=== PATIENT | female | born 1945 | race Caucasian/White ===

== ENCOUNTER 2020-12-27 11:01 | Outpatient (REF) | payer MEDICARE, OTHER, SELFPAY ==
--- NOTE | ~2020-12-27 | MM_ITS ---
EXAMINATION: MM SCREENING DIGITAL BREAST TOMOSYNTHESIS, BILATERAL CLINICAL INFORMATION: Screening. Asymptomatic. The lifetime risk of breast cancer based on the Tyrer-Cuzick Model is 2%. COMPARISON: Mammography: 2 12/22/2019, 01/13/2019, 12/07/2017 TECHNIQUE: Digital breast tomosynthesis is performed in both the craniocaudal and mediolateral oblique views along with computer-aided detection (CAD). Synthesized 2D images are generated from the tomosynthesis. FINDINGS: There are scattered areas of fibroglandular density (ACR BI-RADS breast composition Category b). There are no significant masses, abnormal calcifications, or other abnormalities. There is a stable smooth nodule mid outer left breast. There are scattered benign predominantly vascular calcifications again seen in both breasts. No significant changes. MM/MM tomosynthesis screening BI IMPRESSION: No mammographic evidence of malignancy. ASSESSMENT: BI-RADS 2: Benign RECOMMENDATION: Routine annual mammography screening. This patient's information was entered into a reminder system with a target due date for their next mammogram.
== END 2020-12-27 11:02 | disposition home or self-care (01) ==
LOC: HO.MAMMO 11:01
PROVIDERS: PCP Internal Medicine; Visit Provider Internal Medicine
DX: Z12.31 Encounter for screening mammogram for malignant neoplasm of breast (principal)
CPT/HCPCS: 77063; 77067

== ENCOUNTER 2021-02-20 06:49 | Outpatient (REF) | payer MEDICARE, OTHER, SELFPAY ==
[2021-02-20 12:20] LABS: Alanine Aminotransferase 15 U/L (0-31); Anion Gap 12 (12-20); Aspartate Amino Transferase 20 U/L (5-31); Blood Urea Nitrogen 15 mg/dL (9-16); Calcium 8.8 mg/dL (8.4-10.2); Carbon Dioxide 29 mmol/L (22-29); Chloride 105 mmol/L (96-108); Cholesterol 203 mg/dL; Estimated Glomerular Filt Rate > 60; Glucose Fasting 96 mg/dL (60-99); HDL Cholesterol 78 mg/dL; LDL Cholesterol Calculated 113 mg/dl; Potassium 3.8 mmol/L (3.3-5.1); Sodium 142 mmol/L (135-145); Triglycerides 63 mg/dL
[2021-02-20 12:22] LABS: Vitamin D 25-OH Total 38.5 ng/mL (>30)
== END 2021-02-20 06:50 | disposition home or self-care (01) ==
LOC: HO.HMGCLDS 06:49
PROVIDERS: PCP Internal Medicine; Visit Provider Internal Medicine
DX: I10 Essential (primary) hypertension (principal); E78.5 Hyperlipidemia, unspecified; M85.80 Other specified disorders of bone density and structure, unspecified site
CPT/HCPCS: 36415; 80048; 80061; 82306; 84450; 84460

== ENCOUNTER 2022-01-15 13:55 | Outpatient (REF) | payer MEDICARE, OTHER, SELFPAY ==
--- NOTE | ~2022-01-15 | MM_ITS ---
EXAMINATION: BONE DENSITOMETRY CLINICAL INDICATION: Other specified disorders of bone density and structure, unspecified site. COMPARISON: Previous BD dated 12/07/2017 and baseline BD dated 10/05/2005. TECHNIQUE: Using a [employer] DXA System (software version: 13.1) manufactured by [employer], dual-energy x-ray absorptiometry was performed of the lumbar spine and left hip. The images are of good technical quality. Summary results are attached. FINDINGS: AP SPINE L1-L4: Current: BMD 0.951 g/cm2, Z-score -0.1, T-score -1.9, osteopenia, 2.7% decrease from previous, 4.8% decrease from baseline (<5% change is not significant). Prior: BMD 0.977 g/cm2. Baseline: BMD 0.999 g/cm2. LEFT FEMUR, NECK: Current: BMD 0.739 g/cm2, Z-score -0.1, T-score -2.1, osteopenia. Prior: BMD 0.722 g/cm2. Baseline: BMD 0.740 g/cm2. LEFT FEMUR, TOTAL: Current: BMD 0.828 g/cm2, Z-score 0.5, T-score -1.4, osteopenia, 2.7% decrease from previous, 2.9% increase from baseline (<5% change is not significant). Prior: BMD 0.851 g/cm2. Baseline: BMD 0.805 g/cm2. IDENTIFIED RISK FACTORS: Menopause. HISTORY OF FRACTURE: None listed. MEDICATIONS: Vitamin D. MM/XR DEXA axial skeleton IMPRESSION: 1. DIAGNOSIS: Osteopenia based on the lowest T-score value of -2.1 in the femoral neck applying World Health Organization criteria. 2. 10-YEAR FRACTURE RISK PREDICTION, FRAX: Major osteoporotic fracture (clinical spine, forearm, hip or shoulder) 15.2%. Hip fracture 4.7%. 3. Treatment Recommendations: NOF guidelines recommend consideration for treatment in postmenopausal women and men age 50 and older presenting with the following: -A hip or vertebral (clinical or morphometric) fracture. -T-score less than or equal to -2.5 at the femoral neck or spine after appropriate evaluation to exclude secondary causes. -Low bone mass at the hip or spine and a 10-year fracture probability by FRAX of greater than or equal to 3% for hip fracture or greater than or equal to 20% for major osteoporotic fracture based on the [place] adapted WHO algorithm. 4. Other Recommendations: All treatment decisions require clinical judgment and consideration of individual patient factors, including patient preferences, comorbidities, previous drug use, risk factors not captured in the FRAX model (e.g. frailty, falls, vitamin D deficiency, increased bone turnover, interval significant decline in bone density) and possible under or overestimation of fracture risk by FRAX. Additional medical evaluation for secondary cause of low bone mineral density may be appropriate. FUTURE SCAN RECOMMENDATION: People with diagnosed cases of osteoporosis or at high risk for fracture should have regular bone mineral density tests. For patients eligible for Medicare, routine testing is allowed once every 2 years. The testing frequency can be increased to one year for patients who have rapidly progressing disease, those who are receiving or discontinuing medical therapy to restore bone mass, or have additional risk factors.
--- NOTE | ~2022-01-15 | MM_ITS ---
EXAMINATION: MM SCREENING DIGITAL BREAST TOMOSYNTHESIS, BILATERAL CLINICAL INFORMATION: Screening. Asymptomatic. The lifetime risk of breast cancer based on the Tyrer-Cuzick Model is 2.0%. COMPARISON: Mammography: December 27, 2020 and studies dating back to November 12, 2015 TECHNIQUE: Digital breast tomosynthesis is performed in both the craniocaudal and mediolateral oblique views along with computer-aided detection (CAD). Synthesized 2D images are generated from the tomosynthesis. FINDINGS: There are scattered areas of fibroglandular density (ACR BI-RADS breast composition Category b). There are no significant masses, abnormal calcifications, or other abnormalities. MM/MM tomosynthesis screening BI IMPRESSION: There are no significant changes from prior study. ASSESSMENT: BI-RADS 1: Negative RECOMMENDATION: Routine annual mammography screening. This patient's information was entered into a reminder system with a target due date for their next mammogram.
== END 2022-01-15 13:56 | disposition home or self-care (01) ==
LOC: HO.MAMMO 13:55
PROVIDERS: PCP Internal Medicine; Visit Provider Internal Medicine
DX: Z13.820 Encounter for screening for osteoporosis (principal); M85.80 Other specified disorders of bone density and structure, unspecified site; Z78.0 Asymptomatic menopausal state; Z12.31 Encounter for screening mammogram for malignant neoplasm of breast
CPT/HCPCS: 77063; 77067; 77080

== ENCOUNTER 2022-03-09 06:55 | Outpatient (REF) | payer MEDICARE, OTHER, SELFPAY ==
[2022-03-09 12:10] LABS: Alanine Aminotransferase 14 U/L (0-31); Anion Gap 10 (12-20); Aspartate Amino Transferase 21 U/L (5-31); Blood Urea Nitrogen 15 mg/dL (9-16); Calcium 9.2 mg/dL (8.4-10.2); Carbon Dioxide 30 mmol/L (22-29); Chloride 106 mmol/L (96-108); Cholesterol 206 mg/dL; Estimated Glomerular Filt Rate > 60; Glucose Fasting 101 mg/dL (60-99); HDL Cholesterol 74 mg/dL; LDL Cholesterol Calculated 121 mg/dl; Potassium 4.3 mmol/L (3.3-5.1); Sodium 142 mmol/L (135-145); Triglycerides 59 mg/dL; Vitamin D 25-OH Total 34.6 ng/mL (>30)
== END 2022-03-09 06:56 | disposition home or self-care (01) ==
LOC: HO.HMGCLDS 06:55
PROVIDERS: Visit Provider Internal Medicine
DX: E78.5 Hyperlipidemia, unspecified (principal); I10 Essential (primary) hypertension; M85.80 Other specified disorders of bone density and structure, unspecified site; N95.9 Unspecified menopausal and perimenopausal disorder; Z78.0 Asymptomatic menopausal state
CPT/HCPCS: 36415; 80048; 80061; 82306; 84450; 84460

== ENCOUNTER 2023-01-21 08:08 | Outpatient (REF) | payer MEDICARE, OTHER, SELFPAY ==
--- NOTE | ~2023-01-21 | MM_ITS ---
EXAMINATION: MM SCREENING DIGITAL BREAST TOMOSYNTHESIS, BILATERAL CLINICAL INFORMATION: Screening. Asymptomatic. The lifetime risk of breast cancer based on the Tyrer-Cuzick Model is 1.7%. COMPARISON: Mammography: January 15, 2022 and studies dating back to every 2017 TECHNIQUE: Digital breast tomosynthesis is performed in both the craniocaudal and mediolateral oblique views along with computer-aided detection (CAD). Synthesized 2D images are generated from the tomosynthesis. FINDINGS: There are scattered areas of fibroglandular density (ACR BI-RADS breast composition Category b). There are no new significant masses, abnormal calcifications, or other abnormalities. MM/MM tomosynthesis screening BI IMPRESSION: No significant changes from prior exam. ASSESSMENT: BI-RADS 1: Negative RECOMMENDATION: Routine annual mammography screening. This patient's information was entered into a reminder system with a target due date for their next mammogram.
== END 2023-01-21 08:09 | disposition home or self-care (01) ==
LOC: HO.MAMMO 08:08
PROVIDERS: PCP Internal Medicine; Visit Provider Internal Medicine
DX: Z12.31 Encounter for screening mammogram for malignant neoplasm of breast (principal)
CPT/HCPCS: 77063; 77067

== ENCOUNTER 2023-03-04 06:56 | Outpatient (REF) | payer MEDICARE, OTHER, SELFPAY ==
[2023-03-04 12:16] LABS: Alanine Aminotransferase 14 U/L (0-31); Anion Gap 11 (12-20); Aspartate Amino Transferase 22 U/L (5-31); Blood Urea Nitrogen 16 mg/dL (9-16); Calcium 9.2 mg/dL (8.4-10.2); Carbon Dioxide 31 mmol/L (22-29); Chloride 106 mmol/L (96-108); Cholesterol 211 mg/dL; Estimated Glomerular Filt Rate > 60; Glucose Fasting 94 mg/dL (60-99); HDL Cholesterol 74 mg/dL; LDL Cholesterol Calculated 125 mg/dl; Potassium 4.2 mmol/L (3.3-5.1); Sodium 144 mmol/L (135-145); Triglycerides 64 mg/dL
== END 2023-03-04 06:57 | disposition home or self-care (01) ==
LOC: HO.HMGCLDS 06:56
PROVIDERS: PCP Internal Medicine; Visit Provider Internal Medicine
DX: E78.5 Hyperlipidemia, unspecified (principal); I10 Essential (primary) hypertension; M85.80 Other specified disorders of bone density and structure, unspecified site; Z78.0 Asymptomatic menopausal state
CPT/HCPCS: 36415; 80048; 80061; 82306; 84450; 84460

== ENCOUNTER 2023-03-11 07:52 | Outpatient (AMB) | payer MEDICARE, OTHER, SELFPAY ==
--- NOTE | 2023-03-11 07:58 | A.OFFPC_ITS ---
Vital Signs 03/11/23 08:08 Height 5 ft 5 in Weight 146 lb BMI 24.3 BP 152/90 H Blood Pressure Location Lt brachial Position Sitting Pulse 63 Pulse Source Pulse Oximeter Pulse Oximetry (%) 96 Oxygen Delivery Method Room Air Intake Visit Reasons: PE/secondary covers Intake Note: Pt is here today for her PE Allergies Sulfa (Sulfonamide Antibiotics) Allergy (Unknown, Verified 06/01/23 13:02) hives atorvastatin Adverse Reaction (Unknown, Verified 06/01/23 13:02) muscle pain rosuvastatin Adverse Reaction (Unknown, Verified 06/01/23 13:02) muscle pain Medication List - Last Reconciled 03/11/23 by Tiny Potter MD hydrochlorothiazide 12.5 mg PO DAILY meclizine 0 mg PO pravastatin 20 mg PO DAILY Tobacco use date assessed: 03/11/23 Fall risk assessment: No Falls in past year Last assessed Fall Risk: 03/11/23 HPI PE/secondary covers HPI Details 77-year-old lady here today for physical exam. She is up-to-date with her screening mammogram, done December 2022 and is also up-to-date with her screening colonoscopy done 09/02/2015 which was essentially unremarkable except for presence of sigmoid diverticulosis and internal hemorrhoids. As per Dr. Bejarano, there is no further need to for repeat colonoscopies. She had a bone density scan done in 2021 which showed presence of osteopenia in her lumbar spine spine, no significant change from previous bone density scan. She has had her COVID vaccine, but has not yet had her latest booster, up-to-date with her pneumonia vaccine and Tdap, no shingles vaccine seen on record. Has hypertension, dyslipidemia, compliant with taking her medications, bl ood pressure today is mildly elevated. Complains of approximately 6 weeks acute pain in her left lower back radiating down left leg up to up to calf, not accompanied by any incontinence, no weakness. Pain is worse when she wakes up in the morning and starts walking, ease up with walking he has been taking Aleve and Excedrin which affords only temporary relief. Has been doing stretches in bed, which has not been helping. No history of trauma or any strenuous exertion. [facility] Medical History (Updated 07/14/23 @ 00:43 by Tiny Potter MD) Intermittent vertigo Sleeping difficulty Lumbago with sciatica, left side Dyslipidemia Essential hypertension Osteopenia after menopause Surgical History No pertinent past surgical history Social History Housing: House Alcohol intake: never Patient Tobacco Use Status: Never used Tobacco e-Cigarette/Vaping Use: Never Used Current occupational status: retired Cognitive needs: No Hearing needs: No Vision needs: Yes Questionnaire PHQ-9 Over the last 2 weeks, how often have you been bothered by any of the following problems? 02000 - PHQ-9 Billing: Patient declined-do not bill Source: Developed by Drs. Eleuterio Spivey, Marsha Darling, Antonio Goodman and colleagues, with an educational bebeto from [employer]. Thrive Questionnaire Date Thrive assessed: 03/11/23 What is your living situation today?: I choose not to answer this question Within the past 12 months, did the food you bought not last and you didn't have the money to get more?: I choose not to answer this question Within the past 12 months, did you worry whether your food would run out before you got money to buy more?: I choose not to answer this question Do you have trouble paying for medicines?: I choose not to answer this question Do you have trouble getting transportation to medical appointments?: I choose not to answer this question Do you have trouble paying your heating and electricity bill?: I choose not to answer this question Do you have trouble taking care of your child, family member or friend?: I choose not to answer this question Do you have trouble with day-to-day activities such as bathing, preparing meals, shopping, managing finances, etc.?: I choose not to answer this question Are you currently unemployed and looking for a job?: I choose not to answer this question Are you interested in more education?: I choose not to answer this question Currently or been in a relationship where the following occur: I choose not to answer this question AUDIT C Alcohol Use Questionnaire (AUDIT-C) 1. How often do you have a drink containing alcohol?: Monthly or less 2. How many drinks containing alcohol do you have on a typical day when you are drinking?: 1 or 2 3. How often do you have six or more drinks on one occasion?: Never Total Score: 1 BIGG-7 AMB Questionnaire BIGG-7 Date BIGG - 7 assessed: 03/11/23 Source: Developed by Drs. Eleuterio Spivey, Marsha Darling, Antonio Goodman and colleagues, with an educational bebeto from [employer]. BIGG-7 Assessment Billing BIGG-7 Assessment Tool: pt declined-do not bill Review of Systems Const Reports as per HPI, Denies fever(s), Denies headache(s), Denies snoring, Denies stops breathing during sleep and Denies weakness ENT Denies dizziness, Denies headache(s), Denies nasal congestion and Denies post nasal drip Card Reports no additional complaints Resp Reports no additional complaints and Denies snoring GI Denies abdominal pain, Denies bloating, Denies change in bowel habits, Denies dyspepsia and Denies heartburn Reports no additional complaints Musc Reports as per HPI Skin/Breast Denies breast pain, Denies breast mass and Denies rash Neuro Denies dizziness, Denies headache(s) and Denies weakness Psych Reports no additional complaints Endo Reports no additional complaints Lazarus/Lymph Reports no additional complaints Aller/Immun Reports no additional complaints Physical exam (Primary Care) Vital Signs: Last Vital Signs Pulse 63 03/11/23 08:08 BP 152/90 H 03/11/23 08:08 Pulse Ox 96 03/11/23 08:08 Oxygen Delivery Method Room Air 03/11/23 08:08 BMI result Body Mass Index 24.3 Tobacco/Smoking Status: Tobacco use Status Tobacco use date assessed 03/11/23 03/11/23 08:08 Patient Tobacco Use Status Never used Tobacco 03/11/23 07:59 e-Cigarette/Vaping Use Never Used 03/11/23 07:59 Thrive Assessment: Date of Thrive Assessment Date Thrive assessed 03/11/23 03/11/23 08:14 Currently or been in a relationship where the following occur: I choose not to answer this question Const General: cooperative, comfortable and no acute distress Orientation/consciousness: patient oriented x3 HENMT Ears: hearing grossly normal bilaterally, external ears normal, TM's normal bilaterally and EAC's normal General nose exam: Normal external nose present, Normal nasal mucous membranes and turbinates present and No nasal discharge present Mouth: Normal oral and palatal mucosa present, oropharynx normal and moist mucous membranes Throat: Yes posterior oropharynx normal Eyes General: appearance normal, both eyes and all related structures Conjunctivae: conjunctivae normal Pupils: Equal, round and reactive pupils present EOM: EOMs intact bilaterally Neck Neck: Yes full ROM, Yes no lymphadenopathy and Yes supple Chest Chest palpation & inspection: normal inspection of the chest Breast/axilla palpation: normal palpation of the breasts Resp Effort & Inspection: normal respiratory effort and able to speak in complete sentences Auscultation: clear to auscultation bilaterally Cardio Rate: regular rate Rhythm: regular rhythm Heart sounds: S1 normal heart sound present and S2 normal heart sound present GI Inspection: Yes normal to inspection Palpation (GI): Soft to palpation, nontender and no masses Auscultation: normal bowel sounds Back/Spine/Pelvis Cervical Spine: cervical ROM normal Thoracic/Lumbar Spine: thoracic and lumbar spine normal to inspection Skin General skin exam: no rashes or lesions noted Neuro General: patient oriented x3, gait normal, tone normal, moves all extremities, Normal light touch and pain sensation and no focal motor deficits Cranial nerves: Yes Equal, round and reactive pupils present Cognition (Neuro): normal cognition Gait exam (Neuro): Normal gait present Motor exam (neuro): 5/5 motor strength present throughout Extrem General: Yes full ROM, Yes no joint enlargement, Yes no pedal edema, Yes no calf tenderness and Yes normal gait Psych Appearance: grossly normal Mental Status: mental status grossly normal Speech and movement: Normal speech and movement present Affect: normal affect Results Reviewed Results Reviewed: ENTERED: 03/04/23 AMBER MEJIA: ORDERED: Met Prof Fast, AST, ALT, Lipid Panel, Vitamin D 25-OH Test Result Flag Reference Site Sodium 144 135-145 mmol/L Potassium 4.2 3.3-5.1 mmol/L CL 106 96-108 mmol/L CO2 31 H 22-29 mmol/L Gap 11 L 12-20 BUN 16 9-16 mg/dL Creat 0.79 0.5-1.4 mg/dL EGFR > 60 NOTE: For -[place] individuals, multiply the result by 1.210. Chronic Kidney Disease: Estimated GFR < 60 mL/min/1.73m2 Severe Kidney Disease: Estimated GFR < 15 mL/min/1.73m2 FBS 94 60-99 mg/dL CA 9.2 8.4-10.2 mg/dL AST (GOT) 22 5-31 U/L ALT (GPT) 14 0-31 U/L Triglyceride 64 mg/dL Desirable Triglyceride: less than 150 mg/dL Borderline High Triglyceride 150-199 mg/dL High Triglyceride: 200-499 mg/dL Very High Triglyceride: greater than or equal to 5OO mg/dL Chol 211 mg/dL Desirable Cholesterol: less than 200 mg/dL Borderline High Cholesterol: 200-239 mg/dL High Cholesterol: greater than 239 mg/dL LDL Calculated 125 mg/dl Desirable LDL: less than 100 mg/dL Near Optimal/Above Optimal LDL: 110-129 mg/dL Borderline High LDL: 130-159 mg/dL High LDL: 160-189 mg/dL Very High LDL: greater than or equal to 190 mg/dL HDL 74 mg/dL Desirable HDL: greater than 40 mg/dL Note: This HDL assay may give artificially low results in patients with liver disease. Vit D 25-OH Tot 56.0 >30 ng/mL Health Based Reference Values* < 20 ng/mL Deficient 20-30 ng/mL Insufficient > 30 ng/mL Sufficient Assessment and Plan Assessment & Plan (1) Annual visit for general adult medical examination with abnormal findings: Code(s): Z00.01 - Encounter for general adult medical examination with abnormal findings Plan: Reviewed recent fasting lab results with patient. Continue with regular dental visit every 6 months and regular eye exams, at least every 2 years. Take adequate calcium in diet and vitamin-D 3 at 2000 IU per cap once a day, in addition to weight-bearing exercises to help maintain good muscle tone and weight control. She is up-to-date with her screening mammogram, done December 2022 and is also up-to-date with her screening colonoscopy done 09/02/2015 which was essentially unremarkable except for presence of sigmoid diverticulosis and internal hemorrhoids. As per Dr. Bejarano, there is no further need to for repeat colonoscopies. She had a bone density scan done in 2021 which showed presence of osteopenia in her lumbar spine spine, no significant change from previous bone density scan. She has had her COVID vaccine, but has not yet had her latest booster, up-to-date with her pneumonia vaccine and Tdap, no shingles vaccine seen on record. (2) Lumbago with sciatica, left side: Code(s): M54.42 - Lumbago with sciatica, left side Qualifiers: Back pain laterality: unspecified Chronicity: acute Qualified Code(s): M54.42 - Lumbago with sciatica, left side Plan: Advised to take Tylenol 650 mg 1 tablet every 8 hours as needed for pain, try applying heat to affected area in lower back 15 minutes or, may try [id number] Salonpas patch with lidocaine applied to affected area twice a day as needed. Referred for physical therapy (3) Dyslipidemia: Code(s): E78.5 - Hyperlipidemia, unspecified Plan: Reviewed recent fasting lipid profile with patient with levels within normal limits . Continue with pravastatin 20 mg at bedtime , in addition to adherence to low-cholesterol diet and regular exercise, at least 30 minutes 3 to 4 times a week. Advised patient to make healthy food choices, eat more fruits, vegetables, whole grains, wild caught fish and low-fat dairy. Limit amount of meat and fried or fatty food products, as well as processed foods and fast foods. (4) Essential hypertension: Code(s): I10 - Essential (primary) hypertension Plan: Systolic blood pressure is mildly elevated on today's visit, will continue on lisinopril 10 mg daily and hydrochlorothiazide 25 mg in a.m., Blood pressure goal is less than 130/80. Reinforced importance of following a low sodium diet, getting regular exercise, and lowering stress levels. (5) Osteopenia after menopause: Code(s): M85.80 - Other specified disorders of bone density and structure, unspecified site; Z78.0 - Asymptomatic menopausal state Plan: Continue with regular weight-bearing exercise, continue taking calcium from dietary sources and vitamin-D 3 at least 2000 units daily. Orders: Orders PT Evaluation and Treatment 03/11/23 M54.42 - Lumbago with sciatica, left side Coding Level of Care Code Est Pt Prev Care >65y(52444) Diagnoses Annual visit for general adult medical examination with abnormal findings Z00.01 Acute low back pain with left-sided sciatica, unspecified back pain laterality M54.42 Back pain laterality: unspecified Chronicity: acute Dyslipidemia E78.5 Essential hypertension I10 Osteopenia after menopause M85.80; Z78.0
[2023-03-11 08:08] VITALS: BP 152/90; PULSE 63; O2SAT 96; BMI 24.3
== END 2023-03-11 08:51 | disposition home or self-care (01) ==
LOC: HO.HMGC 07:52
PROVIDERS: PCP Internal Medicine; Visit Provider Internal Medicine
DX: Z00.01 Encounter for general adult medical examination with abnormal findings (principal); M54.42 Lumbago with sciatica, left side; E78.5 Hyperlipidemia, unspecified; I10 Essential (primary) hypertension; M85.80 Other specified disorders of bone density and structure, unspecified site; Z78.0 Asymptomatic menopausal state
CPT/HCPCS: 99397

== ENCOUNTER 2023-06-01 12:58 | Outpatient (AMB) | payer MEDICARE, OTHER, SELFPAY ==
--- NOTE | 2023-06-01 12:56 | A.OFFPC_ITS ---
Intake Visit Reasons: trouble sleeping Andriod [phone] ok 2pm Allergies Sulfa (Sulfonamide Antibiotics) Allergy (Unknown, Verified 06/01/23 13:02) hives atorvastatin Adverse Reaction (Unknown, Verified 06/01/23 13:02) muscle pain rosuvastatin Adverse Reaction (Unknown, Verified 06/01/23 13:02) muscle pain Medication List - Last Reconciled 06/01/23 by Tiny Potter MD cholecalciferol (vitamin D3) 50 mcg PO DAILY hydrochlorothiazide 25 mg PO DAILY lisinopril 10 mg PO DAILY meclizine 25 mg PO DAILY PRN ov-tgh-OB-vit L-cprwcc-meqladq 200 mcg-15 mcg- 5 mg-1 mg (PreserVision AREDS 2 Plus Multivit) 1 cap PO BID pravastatin 20 mg PO DAILY Tobacco use date assessed: 06/01/23 Fall risk assessment: No Falls in past year Last assessed Fall Risk: 06/01/23 Dental Screening Dental Screen Date: 06/01/23 Did you have a dental visit in the last 12 months?: Yes Did you have a dental problem in the last 6 months where you did not have access to dental care?: No Was dental information given to patient?: Patient has dentist HPI trouble sleeping Andriod [phone] ok 2pm HPI Details 77 year old lady c/o difficulty initiating sleep and wakes up in the middle of the night and unable to go back to sleep . Has been happening now for the past several months . Has not been having any increased stressors, no illnesses or any other complaints at present time. She would sometimes take an Aleve whenever she wakes up and unable to go to sleep in it helps relaxer. The time she has tried taking melatonin 3 mg per tablet which helps her sleep but she wakes up feeling groggy the next morning. [facility] Medical History (Updated 06/01/23 @ 13:16 by Tiny Potter MD) Dyslipidemia Essential hypertension Lumbago with sciatica, left side Osteopenia after menopause Sleeping difficulty Surgical History No pertinent past surgical history Social History Housing: House Alcohol intake: never Patient Tobacco Use Status: Never used Tobacco e-Cigarette/Vaping Use: Never Used Current occupational status: retired Cognitive needs: No Hearing needs: No Vision needs: Yes Questionnaire PHQ-9 Over the last 2 weeks, how often have you been bothered by any of the following problems? 1. Little interest or pleasure in doing things: not at all 2. Feeling down, depressed, or hopeless: not at all 3. Trouble falling or staying asleep, or sleeping too much: not at all 4. Feeling tired or having little energy: not at all 5. Poor appetite or overeating: not at all 6. Feeling bad about yourself - or that you are a failure or have let yourself or your family down: not at all 7. Trouble concentrating on things, such as reading the newspaper or watching television: not at all 8. Moving or speaking so slowly that other people could have noticed. Or the opposite - being so fidgety or restless that you have been moving around a lot more than usual: not at all 9. Thoughts that you would be better off or of hurting yourself in some way: not at all Total score: 0 Depression Screening Interpretation: Negative 40011 - PHQ-9 Billing: Yes Source: Developed by Drs. Eleuterio Spivey, Marsha Darling, Antonio Goodman and colleagues, with an educational bebeto from [employer]. Thrive Questionnaire Date Thrive assessed: 03/11/23 AUDIT C Alcohol Use Questionnaire (AUDIT-C) 1. How often do you have a drink containing alcohol?: Never Total Score: 0 BIGG-7 AMB Questionnaire BIGG-7 Date BIGG - 7 assessed: 06/01/23 Feeling nervous, anxious, or on edge: 0 = Not at all Not being able to stop or control worryin = Not at all Worrying too much about different things: 0 = Not at all Trouble relaxin = Not at all Being so restless that it is hard to sit still: 0 = Not at all Becoming easily annoyed or irritable: 0 = Not at all Feeling afraid as if something awful might happen: 0 = Not at all Total BIGG-7 score (0-4 normal; 5-9 mild; 10-14 moderate; 15-21 severe): 0 Source: Developed by Charles Cedenoet B.W. Phong, Antonio Goodman and colleagues, with an educational bebeto from [employer]. BIGG-7 Assessment Billing BIGG-7 Assessment Tool: BIGG-7 Assessment 08409 Review of Systems Const Reports as per HPI, Denies fatigue, Denies fever(s), Denies headache(s), Denies lethargy, Denies snoring, Denies stops breathing during sleep and Denies weakness ENT Denies vertigo, Denies dizziness, Denies headache(s), Denies nasal congestion, Denies nasal obstruction, Denies post nasal drip and Denies sore throat Card Reports no additional complaints Resp Reports no additional complaints and Denies snoring GI Denies abdominal pain, Denies bloating, Denies change in bowel habits, Denies dyspepsia and Denies heartburn Musc Reports no additional complaints Neuro Denies vertigo, Denies dizziness, Denies headache(s) and Denies weakness Endo Denies fatigue Aller/Immun Reports no additional complaints Physical exam (Primary Care) Tobacco/Smoking Status: Tobacco use Status Tobacco use date assessed 06/01/23 06/01/23 12:58 Patient Tobacco Use Status Never used Tobacco 06/01/23 12:58 e-Cigarette/Vaping Use Never Used 06/01/23 12:58 Depression Screening Interpretation: Negative Thrive Assessment: Date of Thrive Assessment Date Thrive assessed 03/11/23 06/01/23 12:58 Telehealth Telehealth Location of provider rendering services: practice address Location of patient: address on file Patient Identification confirmed using: Name, : Yes Telehealth method: video Patient verbally consented to treatment: Yes Patient verbally consented to billing insurance company: Yes Patient informed of any privacy concerns related to visit: Yes Minutes spent on Phone/Video with Pt.: 15 Assessment and Plan Assessment & Plan (1) Sleeping difficulty: Code(s): G47.9 - Sleep disorder, unspecified Plan: Advised to do this at a regular bedtime, avoid taking long naps during the afternoon, keep bedroom temperature a comfortable level, on the cooler side. May try melatonin but take 1.5 mg or half a tablet of the 3 mg that she already has at home at bedtime at least 30 minutes before sleep, patient advised to call if not helping Coding Level of Care Code Tele Est Pt Level 3 (85935) Diagnoses Sleeping difficulty G47.9 Additional Codes BIGG-7 Assessment Billing - BIGG-7 Assessment Tool: BIGG-7 Assessment 14634 ([id number])
== END 2023-06-01 16:51 | disposition home or self-care (01) ==
LOC: HO.HMGC 12:59
PROVIDERS: PCP Internal Medicine; Visit Provider Internal Medicine
DX: G47.9 Sleep disorder, unspecified (principal)
CPT/HCPCS: 99213

== ENCOUNTER 2023-08-18 11:21 | Outpatient (AMB) | payer MEDICARE, OTHER, SELFPAY ==
--- NOTE | 2023-08-18 11:23 | AM.OFFWIN_ITS ---
Intake Vital Signs 08/18/23 11:29 08/18/23 11:49 Height 5 ft 5 in Weight 144 lb BMI 24.0 BP 172/90 H 128/68 Blood Pressure Location Lt brachial Lt brachial Position Sitting Pulse 76 Pulse Source Pulse Oximeter Temp 98.3 F Temp Source Temporal Artery Scan Pulse Oximetry (%) 97 Oxygen Delivery Method Room Air Intake Visit Reasons: Est/cough/chest tightness Intake Note: pt is here for c/o cough with chest congestion, had flu shot last week and hasnt been feeling good since. coughing up green phlem Patient Tobacco Use Status: Never used Tobacco Allergies Sulfa (Sulfonamide Antibiotics) Allergy (Unknown, Verified 08/18/23 11:52) hives atorvastatin Adverse Reaction (Unknown, Verified 08/18/23 11:52) muscle pain rosuvastatin Adverse Reaction (Unknown, Verified 08/18/23 11:52) muscle pain Medication List - Last Reconciled 08/18/23 by ELDA Martell-HUBER cholecalciferol (vitamin D3) 50 mcg PO DAILY hydrochlorothiazide 25 mg PO QAM lisinopril 10 mg PO DAILY meclizine 25 mg PO DAILY PRN ei-ldp-TN-vit I-liwwit-xwnxuse 200 mcg-15 mcg- 5 mg-1 mg (PreserVision AREDS 2 Plus Multivit) 1 cap PO BID pravastatin 20 mg PO DAILY Do you need a note to return to daycare/school/sports/work: Yes HPI HPI Comments History of Present Illness Details HERE TODAY W CO PRODUCTIVE COUGH FOR THE LAST WEEK. REPORTS FLU VAX 1 WEEK AGO PAIRED W KNOWN SICK CONTACT PRIOR TO ONSET OF SX. ASSOC SX INCLUDE MALAISE, HEADACHE. USED TUSSIN YESTERDAY W/O GREAT BENEFIT. DENIES FEVER, CHILLS, CHEST PAIN, SORE THROAT, TRAVEL. [facility] Medical History (Updated 08/18/23 @ 11:53 by ELDA Martell-HUBER) Intermittent vertigo Sleeping difficulty Lumbago with sciatica, left side Dyslipidemia Essential hypertension Osteopenia after menopause Surgical History No pertinent past surgical history Social History Housing: House Alcohol intake: never Patient Tobacco Use Status: Never used Tobacco e-Cigarette/Vaping Use: Never Used Current occupational status: retired Cognitive needs: No Hearing needs: No Vision needs: Yes Review of Systems Const All systems reviewed & are unremarkable except as noted in HPI and below Physical Exam Vital Signs: Last Vital Signs Temp 98.3 F 08/18/23 11:29 Pulse 76 08/18/23 11:29 BP 172/90 H 08/18/23 11:29 Pulse Ox 97 08/18/23 11:29 Oxygen Delivery Method Room Air 08/18/23 11:29 BMI result Body Mass Index 24.0 Const Other: AWAKE, ALERT, NAD SCLERA/CONJUNCTIVA CLEAR BILAT UNABLE TO SEE TM BILAT D/T CERUMEN IMPACTION BILAT NARES PATENT, NO DRAINAGE, NO SINUS TENDERNESS PHARYNX MILD ERYTHEMA, NO EXUDATE, MMM RRR LS WITH FINE INS/EXP CRACKLES BLL, HACKING CONGESTED COUGH W/O DISTRESS NOTED DURING EXAM SKIN PWD Assessment & Plan Assessment & Plan (1) Flu-like symptoms: Code(s): R68.89 - Other general symptoms and signs Plan: SWABBED TODY FOR COVID/RSV/FLU. SHE WILL BE CALLED W THE RESULTS WHEN AVAILABLE. I AM GOING TO EMPIRICALLY [place] FOR PNA GIVEN EXAM FINDINGS TODAY WITH AB AND COUGH SUPPRESSANT. SHE SHOULD CONT AB DIRECTED UNLESS THE VIRAL SWAB COMES BACK +. IF THIS IS THE CASE, SHE CAN STOP THE AB AND CONT COUGH SUPPRESSANT AND USE SUPPORTIVE CARE FOR HER SX. (2) Cough productive of purulent sputum: Code(s): R05.8 - Other specified cough (3) Impacted cerumen of both ears: Code(s): H61.23 - Impacted cerumen, bilateral Plan: INCIDENTAL FINDING. SHE HAS SELF TX AT HOME IN THE PAST. ADVISED TO USE OTC/HOME TX ONCE SHE IS FEELING BETTER. Orders: Orders SARS-CoV2/FLU/RSV Today R05.8 - Other specified cough, R68.89 - Other general symptoms and signs XR chest 2V Today R05.8 - Other specified cough, R68.89 - Other general symptoms and signs Medications: New amoxicillin-pot clavulanate 500-125 mg 1 tab PO BID 7 days 14 tabs 0RF benzonatate 100 mg PO TID 10 days PRN 30 caps 1RF cough Coding Level of Care Code Est Pt Level 3 (10897) Diagnoses Flu-like symptoms R68.89 Cough productive of purulent sputum R05.8 Impacted cerumen of both ears H61.23
[2023-08-18 11:29] VITALS: BP 172/90; PULSE 76; TEMP 36.8; O2SAT 97; BMI 24.0
[2023-08-18 11:49] VITALS: BP 128/68
== END 2023-08-18 12:23 | disposition home or self-care (01) ==
PROVIDERS: PCP Internal Medicine; Visit Provider Nurse Practitioner Family
DX: R68.89 Other general symptoms and signs (principal); R05.8 Other specified cough; H61.23 Impacted cerumen, bilateral
CPT/HCPCS: 99213

== ENCOUNTER 2023-08-18 11:50 | Outpatient (REF) | payer MEDICARE, OTHER, SELFPAY ==
--- NOTE | ~2023-08-18 | XR_ITS ---
EXAMINATION: XR CHEST CLINICAL INFORMATION: Cough COMPARISON: PA chest only of 06/26/2015 TECHNIQUE: 2 views of the chest were obtained. FINDINGS: The lungs are hyperinflated. There is no gross pneumothorax. Heart size is normal. S-shaped thoracolumbar scoliosis with multilevel degenerative changes. No pleural effusion. Mild linear and hazy opacities at the left lung base, new since 2014. XR/XR chest 2V IMPRESSION: Mild linear and hazy opacities at the left lung base, increased since 06/26/2015 exam. Differential considerations include atelectasis/scar versus pneumonia. Correlation with clinical exam recommended to determine further management. Recommend follow-up imaging in 4-6 weeks to confirm resolution and exclude underlying pathology. Stat report provided as requested to the referring clinician at the time exam presented for interpretation on 08/18/2023 at 1:00 PM.
[2023-08-18 17:11] LABS: Influenza A PCR NEGATIVE (Negative); Influenza B PCR NEGATIVE (Negative); Resp Syncy Virus RNA Qual PCR NEGATIVE (Negative); SARS COV2 PCR INHOUSE NEGATIVE (Negative)
== END 2023-08-18 11:51 | disposition home or self-care (01) ==
LOC: HO.HMGCX 11:50
PROVIDERS: Visit Provider Nurse Practitioner Family
DX: Z11.52 Encounter for screening for COVID-19 (principal); R05.8 Other specified cough; R68.89 Other general symptoms and signs
CPT/HCPCS: 0241U; 71046

== ENCOUNTER 2023-08-20 10:14 | Outpatient (AMB) | payer MEDICARE, OTHER, SELFPAY ==
[2023-08-20 10:17] VITALS: BP 160/90; PULSE 78; TEMP 36.6; O2SAT 96; BMI 24.0
--- NOTE | 2023-08-20 10:17 | MHC.OFFWIV ---
Intake Vital Signs 08/20/23 10:17 Height 5 ft 5 in Weight 144 lb BMI 24.0 BP 160/90 H Blood Pressure Location Lt brachial Position Sitting Pulse 78 Pulse Source Pulse Oximeter Temp 97.8 F Temp Source Temporal Artery Scan Pulse Oximetry (%) 96 Oxygen Delivery Method Room Air Intake Visit Reasons: EP Cough Intake Note: pt is here for c/o cough was just seen in walk in 2 days ago, negative for covid but xray showed lower lobe pneumonia Patient Tobacco Use Status: Never used Tobacco Allergies Sulfa (Sulfonamide Antibiotics) Allergy (Unknown, Verified 08/20/23 10:19) hives atorvastatin Adverse Reaction (Unknown, Verified 08/20/23 10:19) muscle pain rosuvastatin Adverse Reaction (Unknown, Verified 08/20/23 10:19) muscle pain Do you need a note to return to daycare/school/sports/work: Yes HPI HPI Comments History of Present Illness Details This is a 77-year-old female presenting for re-evaluation of a left lower lobe pneumonia. Patient was initially seen in the walk-in clinic on August 18, diagnosed with a pneumonia and discharged home with Augmentin that she has been taking twice daily. The patient returns stating that her cough is productive and she feels that it has worsened. Patient denies any overt shortness of breath and denies any chest pain. Overall, the patient states she feels better than she did on her initial evaluation, but is concerned about her cough. [facility] Medical History Intermittent vertigo Sleeping difficulty Lumbago with sciatica, left side Dyslipidemia Essential hypertension Osteopenia after menopause Surgical History No pertinent past surgical history Social History Housing: House Alcohol intake: never Patient Tobacco Use Status: Never used Tobacco e-Cigarette/Vaping Use: Never Used Current occupational status: retired Cognitive needs: No Hearing needs: No Vision needs: Yes Review of Systems Const Denies chills, Reports fatigue and Denies fever(s) ENT Denies sinus pain, Denies sinus pressure and Denies sore throat Card Denies dyspnea Resp Reports chest congestion, Reports cough, Denies hemoptysis, Reports excessive phlegm production, Denies dyspnea and Denies wheezing Skin/Breast Reports system reviewed and no additional complaints, except as documented Endo Reports fatigue Aller/Immun Denies wheezing Physical Exam Vital Signs: BMI result Body Mass Index 24.0 Afebrile, POX 96% on room air. Const General: cooperative, healthy appearing, comfortable and no acute distress Nutritional Appearance: average body habitus Orientation/consciousness: patient oriented x3 Limitations: no limitations Resp Effort & Inspection: normal respiratory effort, able to speak in complete sentences, no audible wheezes, Actively coughing, respiratory effort not decreased, no respiratory distress, no stridor and not tachypneic Auscultation: clear to auscultation bilaterally, no crackles, no rales, no rhonchi, no wheezes and lung sounds not diminished Cardio Rate: regular rate Rhythm: regular rhythm Neuro General: patient oriented x3 Psych Appearance: grossly normal Mental Status: mental status grossly normal Insight: Good insight present (Psych) Judgement: Good judgement present (Psych) Results Reviewed Results Reviewed: Reviewed documentation and CXR from 08.18.2023 Assessment & Plan Assessment & Plan (1) Pneumonia involving left lung: Code(s): J18.9 - Pneumonia, unspecified organism Plan Patient will continue to take her Augmentin twice daily as previously prescribed and utilize Mucinex OTC daily for the next 7-10 days. Patient is also instructed to increase her clear fluids daily and introduce hot tea with honey. Coding Level of Care Code Est Pt Level 3 (58590) Diagnoses Pneumonia involving left lung J18.9 Time Spent (min) 20
== END 2023-08-20 10:54 | disposition home or self-care (01) ==
PROVIDERS: PCP Internal Medicine; Visit Provider Physician Assistant
DX: J18.9 Pneumonia, unspecified organism (principal)
CPT/HCPCS: 99213

== ENCOUNTER 2023-09-03 09:30 | Outpatient (AMB) | payer MEDICARE, OTHER, SELFPAY ==
--- NOTE | 2023-09-03 09:36 | AM.OFFWIN_ITS ---
Intake Vital Signs 09/03/23 09:39 Height 5 ft 5 in Weight 144 lb BMI 24.0 BP 128/70 Blood Pressure Location Rt brachial Position Sitting Pulse 61 Pulse Source Pulse Oximeter Temp 99.2 F Temp Source Temporal Artery Scan Pulse Oximetry (%) 94 Oxygen Delivery Method Room Air Intake Visit Reasons: EP cough/pos Covid [phone] Intake Note: pt is here for c/o cough 3x weeks, had pneumonia 2 weeks ago Patient Tobacco Use Status: Never used Tobacco Allergies Sulfa (Sulfonamide Antibiotics) Allergy (Unknown, Verified 09/03/23 09:38) hives atorvastatin Adverse Reaction (Unknown, Verified 09/03/23 09:38) muscle pain rosuvastatin Adverse Reaction (Unknown, Verified 09/03/23 09:38) muscle pain Do you need a note to return to daycare/school/sports/work: Yes HPI HPI Comments History of Present Illness Details The patient presents to urgent care for evaluation COVID. She states that she has had a cough for 3 weeks which started soon after getting the flu shot and then developed pneumonia. After treatment of pneumonia she still has had a persistent cough and started to feel unwell again yesterday. Patient took a COVID test this morning which is noted to be positive. Her also tested positive this morning for COVID. They report that they were recently out of town and drove down to [place]. [facility] Medical History (Updated 08/27/23 @ 12:53 by Silvia Montelongo) Intermittent vertigo Sleeping difficulty Lumbago with sciatica, left side Dyslipidemia Essential hypertension Osteopenia after menopause Surgical History (Updated 08/27/23 @ 12:53 by Silvia Montelongo) No pertinent past surgical history Social History (System 08/27/23 @ 12:53 by Silvia Montelongo) Housing: House Alcohol intake: never Patient Tobacco Use Status: Never used Tobacco e-Cigarette/Vaping Use: Never Used Current occupational status: retired Cognitive needs: No Hearing needs: No Vision needs: Yes Review of Systems Card Denies rapid heart rate, Denies dyspnea and Denies dyspnea on exertion Resp Denies dyspnea and Denies dyspnea on exertion GI Denies dyspepsia and Denies heartburn Musc Denies arthralgias and Denies muscle cramps Neuro Denies focal weakness and Denies Other visual disturbances Physical Exam Vital Signs: Last Vital Signs Temp 99.2 F 09/03/23 09:39 Pulse 61 09/03/23 09:39 BP 128/70 09/03/23 09:39 Pulse Ox 94 09/03/23 09:39 Oxygen Delivery Method Room Air 09/03/23 09:39 BMI result Body Mass Index 24.0 Const General: healthy appearing and no acute distress HEENT Mouth: Normal oral and palatal mucosa present Resp Effort & Inspection: normal respiratory effort and able to speak in complete sentences Auscultation: clear to auscultation bilaterally Cardio Rate: regular rate Rhythm: regular rhythm Assessment & Plan Assessment & Plan (1) COVID: Code(s): U07.1 - COVID-19 Plan Patient with COVID will benefit from Paxlovid treatment. Recommend close follow-up with PCP. Coding Level of Care Code Est Pt Level 3 (86644) Diagnoses COVID U07.1
[2023-09-03 09:39] VITALS: BP 128/70; PULSE 61; TEMP 37.3; O2SAT 94; BMI 24.0
== END 2023-09-03 10:06 | disposition home or self-care (01) ==
PROVIDERS: PCP Internal Medicine; Visit Provider Emergency Medicine
DX: U07.1 COVID-19 (principal)
CPT/HCPCS: 99213

== ENCOUNTER 2023-09-10 07:43 | Outpatient (REF) | payer MEDICARE, OTHER, SELFPAY ==
[2023-09-10 12:14] LABS: Alanine Aminotransferase 40 U/L (0-31); Anion Gap 11 (12-20); Aspartate Amino Transferase 38 U/L (5-31); Blood Urea Nitrogen 16 mg/dL (9-16); Calcium 9.4 mg/dL (8.4-10.2); Carbon Dioxide 32 mmol/L (22-29); Chloride 105 mmol/L (96-108); Cholesterol 169 mg/dL (<200); Estimated Glomerular Filt Rate > 60; Glucose Fasting 106 mg/dL (60-99); HDL Cholesterol 53 mg/dL (>40); LDL Cholesterol Calculated 99 mg/dL (<100); Potassium 3.9 mmol/L (3.3-5.1); Sodium 144 mmol/L (135-145); Triglycerides 87 mg/dL (<150); Vitamin D 25-OH Total 93.9 ng/mL (>30)
== END 2023-09-10 07:44 | disposition home or self-care (01) ==
LOC: HO.HMGCLDS 07:43
PROVIDERS: PCP Internal Medicine; Visit Provider Internal Medicine
DX: E78.5 Hyperlipidemia, unspecified (principal); I10 Essential (primary) hypertension; M85.80 Other specified disorders of bone density and structure, unspecified site; Z78.0 Asymptomatic menopausal state
CPT/HCPCS: 36415; 80048; 80061; 82306; 84450; 84460

== ENCOUNTER 2023-09-13 08:26 | Outpatient (AMB) | payer MEDICARE, OTHER, SELFPAY ==
--- NOTE | 2023-09-13 08:37 | A.OFFPC_ITS ---
<Statement entered by Tiny Potter MD - 11/25/25 23:45> This note has been administratively?closed. Vital Signs 09/13/23 08:38 Height 5 ft 5 in Weight 138 lb BMI 23.0 BP 114/72 Blood Pressure Location Rt brachial Position Sitting Pulse 65 Pulse Source Pulse Oximeter Pulse Oximetry (%) 95 Oxygen Delivery Method Room Air Intake Visit Reasons: 6m follow up BP ( needs manager of financial ) Intake Note: pt is here to follow up on her lab results pt says she has not had the covid booster because she is at the end of having covid Allergies Sulfa (Sulfonamide Antibiotics) Allergy (Unknown, Verified 10/08/25 09:31) hives atorvastatin Adverse Reaction (Unknown, Verified 10/08/25 09:31) muscle pain rosuvastatin Adverse Reaction (Unknown, Verified 10/08/25 09:31) muscle pain Medication List - Last Reconciled 09/13/23 by Tiny Potter MD cholecalciferol (vitamin D3) 50 mcg PO DAILY hydrochlorothiazide 25 mg PO QAM lisinopril 10 mg PO DAILY meclizine 25 mg PO DAILY PRN kf-azm-UU-vit L-sydhnu-rshsyhe 200 mcg-15 mcg- 5 mg-1 mg (PreserVision AREDS 2 Plus Multivit) 1 cap PO BID pravastatin 20 mg PO DAILY Tobacco use date assessed: 09/13/23 Fall risk assessment: No Falls in past year Last assessed Fall Risk: 09/13/23 Dental Screening Dental Screen Date: 09/13/23 Did you have a dental visit in the last 12 months?: Yes Did you have a dental problem in the last 6 months where you did not have access to dental care?: No Was dental information given to patient?: Patient has dentist HPI 6m follow up BP ( needs manager of financial ) HPI Details 77-year-old lady with hypertension and h yperlipidemia, here today for her follow-up. She had recent fasting labs done which showed lipids within normal limits, fasting blood sugar in the prediabetic range however. Blood pressure has been stable and controlled on present medications with hydrochlorothiazide and lisinopril. [facility] Medical History History of COVID-19 Sleeping difficulty Lumbago with sciatica, left side Dyslipidemia Essential hypertension Osteopenia after menopause Surgical History No pertinent past surgical history Social History Housing: House Alcohol intake: never Patient Tobacco Use Status: Never used Tobacco e-Cigarette/Vaping Use: Never Used service: No Current occupational status: retired Cognitive needs: No Hearing needs: No Vision needs: Yes Questionnaire PHQ-9 Over the last 2 weeks, how often have you been bothered by any of the following problems? 1. Little interest or pleasure in doing things: not at all 2. Feeling down, depressed, or hopeless: not at all 3. Trouble falling or staying asleep, or sleeping too much: several days 4. Feeling tired or having little energy: several days 5. Poor appetite or overeating: not at all 6. Feeling bad about yourself - or that you are a failure or have let yourself or your family down: not at all 7. Trouble concentrating on things, such as reading the newspaper or watching television: not at all 8. Moving or speaking so slowly that other people could have noticed. Or the opposite - being so fidgety or restless that you have been moving around a lot more than usual: not at all 9. Thoughts that you would be better off or of hurting yourself in some way: not at all Total score: 2 Source: Developed by Drs. Eleuterio Spivey, Marsha Darling, Antonio Goodman and colleagues, with an educational bebeto from [employer]. Thrive Questionnaire Date Thrive assessed: 03/11/23 AUDIT C Alcohol Use Questionnaire (AUDIT-C) 1. How often do you have a drink containing alcohol?: 2-4 times a month 2. How many drinks containing alcohol do you have on a typical day when you are drinking?: 1 or 2 3. How often do you have six or more drinks on one occasion?: Never Total Score: 2 BIGG-7 AMB Questionnaire BIGG-7 Date BIGG - 7 assessed: 09/13/23 Feeling nervous, anxious, or on edge: 0 = Not at all Not being able to stop or control worryin = Not at all Worrying too much about different things: 0 = Not at all Trouble relaxin = Not at all Being so restless that it is hard to sit still: 0 = Not at all Becoming easily annoyed or irritable: 0 = Not at all Feeling afraid as if something awful might happen: 0 = Not at all Total BIGG-7 score (0-4 normal; 5-9 mild; 10-14 moderate; 15-21 severe): 0 Source: Developed by Drs. Eleuterio Spivey, Marsha Darling, Antonio Goodman and colleagues, with an educational bebeto from [employer]. Physical exam (Primary Care) Vital Signs: Last Vital Signs Pulse 65 09/13/23 08:38 BP 114/72 09/13/23 08:38 Pulse Ox 95 09/13/23 08:38 Oxygen Delivery Method Room Air 09/13/23 08:38 BMI result Body Mass Index 23.0 Tobacco/Smoking Status: Tobacco use Status Tobacco use date assessed 09/13/23 09/13/23 08:43 Patient Tobacco Use Status Never used Tobacco 09/13/23 08:37 e-Cigarette/Vaping Use Never Used 09/13/23 08:37 PHQ-9: PHQ-9 Score PHQ-9: Total score 2 09/14/23 02:40 Thrive Assessment: Date of Thrive Assessment Date Thrive assessed 03/11/23 09/13/23 08:37 Results Reviewed Results Reviewed: ENTERED: 09/10/23-0746 AMBER MEJIA: ORDERED: Met Prof Fast, AST, ALT, Lipid Panel, Vitamin D 25-OH Test Result Flag Reference Site Sodium 144 135-145 mmol/L Potassium 3.9 3.3-5.1 mmol/L CL 105 96-108 mmol/L CO2 32 H 22-29 mmol/L Gap 11 L 12-20 BUN 16 9-16 mg/dL Creat 0.79 0.5-1.4 mg/dL EGFR > 60 NOTE: For -[place] individuals, multiply the result by 1.210. Chronic Kidney Disease: Estimated GFR < 60 mL/min/1.73m2 Severe Kidney Disease: Estimated GFR < 15 mL/min/1.73m2 FBS 106 H 60-99 mg/dL A fasting glucose from 100-125 mg/dl is considered impaired (pre-diabetes). CA 9.4 8.4-10.2 mg/dL AST (GOT) 38 H 5-31 U/L ALT (GPT) 40 H 0-31 U/L Triglyceride 87 <150 mg/dL Desirable Triglyceride: less than 150 mg/dL Borderline High Triglyceride 150-199 mg/dL High Triglyceride: 200-499 mg/dL Very High Triglyceride: greater than or equal to 5OO mg/dL Cholesterol 169 <200 mg/dL Desirable Cholesterol: less than 200 mg/dL Borderline High Cholesterol: 200-239 mg/dL High Cholesterol: greater than 239 mg/dL LDL Calculated 99 <100 mg/dL Desirable LDL: less than 100 mg/dL Near Optimal/Above Optimal LDL: 110-129 mg/dL Borderline High LDL: 130-159 mg/dL High LDL: 160-189 mg/dL Very High LDL: greater than or equal to 190 mg/dL HDL 53 >40 mg/dL Desirable HDL: greater than 40 mg/dL Note: This HDL assay may give artificially low results in patients with liver disease. Vit D 25-OH Tot 93.9 >30 ng/mL Health Based Reference Values* < 20 ng/mL Deficient 20-30 ng/mL Insufficient > 30 ng/mL Sufficient Coding Level of Care Code Admin Sign Off/No Billing Diagnoses Cough productive of purulent sputum R05.8 History of COVID-19 Z86.16 History of pneumonia Z87.01 Elevated transaminase level R74.01 Dyslipidemia E78.5 Essential hypertension I10 Osteopenia after menopause M85.80; Z78.0
[2023-09-13 08:38] VITALS: BP 114/72; PULSE 65; O2SAT 95; BMI 23.0
== END 2023-09-13 09:23 | disposition home or self-care (01) ==
PROVIDERS: PCP Internal Medicine; Visit Provider Internal Medicine
DX: R05.8 Other specified cough (principal); Z86.16 Personal history of COVID-19; Z87.01 Personal history of pneumonia (recurrent); R74.01 Elevation of levels of liver transaminase levels; E78.5 Hyperlipidemia, unspecified; I10 Essential (primary) hypertension; M85.80 Other specified disorders of bone density and structure, unspecified site; Z78.0 Asymptomatic menopausal state
CPT/HCPCS: 99499

== ENCOUNTER 2023-09-22 08:49 | Outpatient (REF) | payer MEDICARE, OTHER, SELFPAY ==
--- NOTE | ~2023-09-22 | XR_ITS ---
EXAMINATION: XR CHEST CLINICAL INFORMATION: Personal history of Covid 19 COMPARISON: 08/18/2023. TECHNIQUE: 2 views of the chest were obtained. FINDINGS: No new dominant airspace consolidation. Linear opacity in the left base has become more coarsened and may reflect linear atelectatic change. There is slight blunting in a posterior sulcus and at the left costophrenic angle suggestive of a small effusion. No pneumothorax. Pulmonary vascularity is stable. There is a thoracic dextroscoliosis. Multilevel spondylitic changes observed. XR/XR chest 2V IMPRESSION: No new dominant consolidation. More coarsened linear opacity in the left base likely reflecting linear atelectatic change. Slight blunting in a posterior sulcus in the left costophrenic angle suggestive of a small effusion.
[2023-09-22 11:28] LABS: MANUAL DIFF FLAG NO
[2023-09-22 11:33] LABS: Basophils Percent Auto 0.7 % (0-2); Eosinophils Absolute Auto 0.1 X10*3/uL (0.0-0.4); Eosinophils Percent Auto 1.4 % (0-4); Hematocrit 38.5 % (37.0-47.0); Hemoglobin 12.9 g/dl (12.0-16.0); Imm Gran Abs Auto 0.02 X10*3/uL (0.00-0.03); Imm Gran Pct Auto 0.4 % (0.0-0.4); Lymphocytes Absolute Auto 1.5 X10*3/uL (1.2-4.9); Lymphocytes Percent Auto 26.5 % (20-40); Mean Corpuscular HGB Conc 33.5 g/dl (31.0-35.0); Mean Corpuscular Hemoglobin 32.8 pg (27.0-33.0); Mean Platelet Volume 10.1 fL (9.4-12.3); Monocytes Absolute Auto 0.5 X10*3/uL (0.1-1.2); Monocytes Percent Auto 9.2 % (2-11); Neutrophils Absolute Auto 3.5 x10*3/uL (2.0-8.3); Neutrophils Percent Auto 61.8 % (45-73); Platelet Count 287 X10*3/uL (160-400); Red Blood Count 3.93 X10*6/uL (4.20-5.50); Red Cell Distribution Width 12.5 % (11.0-16.0); White Blood Count 5.7 X10*3/uL (4.8-10.8)
[2023-09-22 11:58] LABS: Alanine Aminotransferase 14 U/L (0-31); Aspartate Amino Transferase 22 U/L (5-31)
== END 2023-09-22 08:50 | disposition home or self-care (01) ==
LOC: HO.HMGCX 08:49
PROVIDERS: PCP Internal Medicine; Visit Provider Internal Medicine
DX: R05.8 Other specified cough (principal); R74.01 Elevation of levels of liver transaminase levels; Z86.16 Personal history of COVID-19; Z87.01 Personal history of pneumonia (recurrent)
CPT/HCPCS: 36415; 71046; 84450; 84460; 85025

== ENCOUNTER 2024-01-24 08:07 | Outpatient (REF) | payer MEDICARE, OTHER, SELFPAY | END 2024-01-24 08:08 | disposition home or self-care (01) | LOC: HO.MAMMO 08:07 | PROVIDERS: PCP Internal Medicine; Visit Provider Internal Medicine | DX: Z12.31 Encounter for screening mammogram for malignant neoplasm of breast (principal) | CPT/HCPCS: 77063; 77067 ==

== ENCOUNTER → 2024-01-24 08:15 | Outpatient (BNV) | payer MEDICARE, OTHER, SELFPAY | PROVIDERS: PCP Internal Medicine; Visit Provider Radiology Diagnostic Radiology | DX: Z12.31 Encounter for screening mammogram for malignant neoplasm of breast (principal) | CPT/HCPCS: 77063; 77067 ==

== ENCOUNTER 2024-02-17 08:03 | Outpatient (AMB) | payer MEDICARE, OTHER, SELFPAY ==
--- NOTE | 2024-02-17 08:17 | AM.OFFWIN_ITS ---
Intake Vital Signs 02/17/24 08:18 Height 5 ft 5 in Weight 139 lb 8 oz BMI 23.2 BP 178/90 H Blood Pressure Location Lt brachial Position Sitting Pulse 51 Pulse Source Pulse Oximeter Temp 98.3 F Temp Source Oral Pulse Oximetry (%) 99 Oxygen Delivery Method Room Air Intake Visit Reasons: EP hacking cough tight chest Intake Note: pt is here for coughing and tightness in chest congestion Patient Tobacco Use Status: Never used Tobacco Allergies Sulfa (Sulfonamide Antibiotics) Allergy (Unknown, Verified 02/17/24 08:28) hives atorvastatin Adverse Reaction (Unknown, Verified 02/17/24 08:28) muscle pain rosuvastatin Adverse Reaction (Unknown, Verified 02/17/24 08:28) muscle pain Do you need a note to return to daycare/school/sports/work: No HPI HPI Comments History of Present Illness Details 78 y/o female patient with c/o cough, SO B and chest tightness. [facility] Medical History (Updated 09/13/23 @ 09:16 by Tiny Potter MD) History of COVID-19 Intermittent vertigo Sleeping difficulty Lumbago with sciatica, left side Dyslipidemia Essential hypertension Osteopenia after menopause Surgical History No pertinent past surgical history Social History Housing: House Alcohol intake: never Patient Tobacco Use Status: Never used Tobacco e-Cigarette/Vaping Use: Never Used Current occupational status: retired Cognitive needs: No Hearing needs: No Vision needs: Yes Review of Systems Const All systems reviewed & are unremarkable except as noted in HPI and below Physical Exam Vital Signs: Last Vital Signs Temp 98.3 F 02/17/24 08:18 Pulse 51 02/17/24 08:18 BP 178/90 H 02/17/24 08:18 Pulse Ox 99 02/17/24 08:18 Oxygen Delivery Method Room Air 02/17/24 08:18 BMI result Body Mass Index 23.2 Const General: comfortable and no acute distress Orientation/consciousness: patient oriented x3 HEENT Head: Yes normocephalic Ears: external ears normal and TM's normal bilaterally General nose exam: Normal nasal mucous membranes and turbinates present Face and sinus: Yes sinuses nontender Mouth: moist mucous membranes Throat: Yes postnasal drainage Resp Effort & Inspection: normal respiratory effort, able to speak in complete sentences, no audible wheezes and no cough Auscultation: no crackles, no rales, no rhonchi and no wheezes Cardio Rate: regular rate Rhythm: regular rhythm Neuro General: patient oriented x3 Assessment & Plan Assessment & Plan (1) Cough in adult: Code(s): R05.9 - Cough, unspecified Plan: - Rest and hydrate with warm fluids - Take Abx as directed. - RTC if worse. Medications: New benzonatate 100 mg PO TID 30 caps 0RF R05.9 - Cough, unspecified azithromycin 500 mg PO DAILY 3 tabs 0RF 3 days R05.9 - Cough, unspecified Coding Level of Care Code Est Pt Level 3 (53957) Diagnoses Cough in adult R05.9 Time Spent (min) 15
[2024-02-17 08:18] VITALS: BP 178/90; PULSE 51; TEMP 36.8; O2SAT 99; BMI 23.2
== END 2024-02-17 09:07 | disposition home or self-care (01) ==
PROVIDERS: PCP Internal Medicine; Visit Provider Nurse Practitioner Family
DX: R05.9 Cough, unspecified (principal)
CPT/HCPCS: 99213

== ENCOUNTER 2024-03-07 06:58 | Outpatient (REF) | payer MEDICARE, OTHER, SELFPAY ==
[2024-03-07 11:30] LABS: Alanine Aminotransferase 14 U/L (0-31); Anion Gap 12 (12-20); Aspartate Amino Transferase 23 U/L (5-31); Blood Urea Nitrogen 14 mg/dL (9-16); Calcium 9.6 mg/dL (8.4-10.2); Carbon Dioxide 29 mmol/L (22-29); Chloride 104 mmol/L (96-108); Cholesterol 200 mg/dL (<200); Estimated Glomerular Filt Rate > 60; Glucose Fasting 95 mg/dL (60-99); HDL Cholesterol 77 mg/dL (>40); LDL Cholesterol Calculated 111 mg/dL (<100); Potassium 4.2 mmol/L (3.3-5.1); Sodium 141 mmol/L (135-145); Triglycerides 64 mg/dL (<150)
[2024-03-07 11:52] LABS: Vitamin D 25-OH Total 62.5 ng/mL (>30)
== END 2024-03-07 06:59 | disposition home or self-care (01) ==
LOC: HO.HMGCLDS 06:58
PROVIDERS: PCP Internal Medicine; Visit Provider Internal Medicine
DX: E78.5 Hyperlipidemia, unspecified (principal); I10 Essential (primary) hypertension; M85.80 Other specified disorders of bone density and structure, unspecified site; Z78.0 Asymptomatic menopausal state
CPT/HCPCS: 36415; 80048; 80061; 82306; 84450; 84460

== ENCOUNTER 2024-04-04 08:34 | Outpatient (AMB) | payer MEDICARE, OTHER, SELFPAY ==
[2024-04-04 09:02] VITALS: BP 134/76; PULSE 67; O2SAT 97; BMI 23.1
--- NOTE | 2024-04-04 09:02 | A.OFFPC_ITS ---
Vital Signs 04/04/24 09:02 Height 5 ft 5 in Weight 139 lb BMI 23.1 BP 134/76 Blood Pressure Location Lt brachial Position Sitting Pulse 67 Pulse Source Pulse Oximeter Pulse Oximetry (%) 97 Oxygen Delivery Method Room Air Intake Visit Reasons: Annual PE alfredo from 03/15/24 Intake Note: Pt is here today for PE. Pt had labs done. Mammogram done 01/24/24, colonoscopy 08/2015 no need to repeat by Dr. Bejarano. Bone density done in 2021. Allergies Sulfa (Sulfonamide Antibiotics) Allergy (Unknown, Verified 04/04/24 09:46) hives atorvastatin Adverse Reaction (Unknown, Verified 04/04/24 09:46) muscle pain rosuvastatin Adverse Reaction (Unknown, Verified 04/04/24 09:46) muscle pain Medication List - Last Reconciled 04/04/24 by Tiny Potter MD cholecalciferol (vitamin D3) 50 mcg PO DAILY hydrochlorothiazide 25 mg PO QAM lisinopril 10 mg PO DAILY dz-cxe-LP-vit X-zgskee-hcngnis 200 mcg-15 mcg- 5 mg-1 mg (PreserVision AREDS 2 Plus Multivit) 1 cap PO BID pravastatin 20 mg PO DAILY Tobacco use date assessed: 04/04/24 Fall risk assessment: No Falls in past year Last assessed Fall Risk: 04/04/24 Dental Screening Dental Screen Date: 04/04/24 Did you have a dental visit in the last 12 months?: Yes Did you have a dental problem in the last 6 months where you did not have access to dental care?: No Was dental information given to patient?: Patient has dentist HPI Annual PE alfredo from 03/15/24 HPI Details 58-year-old lady with history of hyperte nsion, dyslipidemia osteopenia, here today for physical exam. She is up-to-date with her screening mammogram, done 01/24/24, had a screening colonoscopy 08/2015 , no need to repeat by Dr. Bejarano. She had a Bone density done in 2021 which showed osteopenia in lumbar spine, Amaryl neck and left femur unchanged from previous test. No history of fractures.. [facility] Medical History (Updated 04/04/24 @ 10:06 by Tiny Potter MD) History of COVID-19 Sleeping difficulty Lumbago with sciatica, left side Dyslipidemia Essential hypertension Osteopenia after menopause Surgical History No pertinent past surgical history Social History Housing: House Alcohol intake: never Patient Tobacco Use Status: Never used Tobacco e-Cigarette/Vaping Use: Never Used service: No Current occupational status: retired Cognitive needs: No Hearing needs: No Vision needs: Yes Questionnaire PHQ-9 Over the last 2 weeks, how often have you been bothered by any of the following problems? 1. Little interest or pleasure in doing things: not at all 2. Feeling down, depressed, or hopeless: not at all 3. Trouble falling or staying asleep, or sleeping too much: several days 4. Feeling tired or having little energy: not at all 5. Poor appetite or overeating: not at all 6. Feeling bad about yourself - or that you are a failure or have let yourself or your family down: not at all 7. Trouble concentrating on things, such as reading the newspaper or watching television: not at all 8. Moving or speaking so slowly that other people could have noticed. Or the opposite - being so fidgety or restless that you have been moving around a lot more than usual: not at all 9. Thoughts that you would be better off or of hurting yourself in some way: not at all Total score: 1 Depression Screening Interpretation: Negative Depression Screening Done: Yes 06140 - PHQ-9 Billing: Yes Source: Developed by Drs. Eleuterio Spivey, Marsha Darling, Antonio Goodman and colleagues, with an educational bebeto from [employer]. Thrive Questionnaire Date Thrive assessed: 04/04/24 I am a: Patient What is your living situation today?: I have a steady place to live Within the past 12 months, did the food you bought not last and you didn't have the money to get more?: Never true Within the past 12 months, did you worry whether your food would run out before you got money to buy more?: Never true Do you have trouble paying for medicines?: No Do you have trouble getting transportation to medical appointments?: No Do you have trouble paying your heating and electricity bill?: No Do you have trouble taking care of your child, family member or friend?: No Do you have trouble with day-to-day activities such as bathing, preparing meals, shopping, managing finances, etc.?: No Are you currently unemployed and looking for a job?: No Are you interested in more education?: No Please select the resources that you would like help with: None THRIVE Score: 0 AUDIT C Alcohol Use Questionnaire (AUDIT-C) 1. How often do you have a drink containing alcohol?: 2-4 times a month 2. How many drinks containing alcohol do you have on a typical day when you are drinking?: 1 or 2 3. How often do you have six or more drinks on one occasion?: Never Total Score: 2 BIGG-7 AMB Questionnaire BIGG-7 Date BIGG - 7 assessed: 04/04/24 Feeling nervous, anxious, or on edge: 0 = Not at all Not being able to stop or control worryin = Not at all Worrying too much about different things: 0 = Not at all Trouble relaxin = Not at all Being so restless that it is hard to sit still: 0 = Not at all Becoming easily annoyed or irritable: 0 = Not at all Feeling afraid as if something awful might happen: 0 = Not at all Total BIGG-7 score (0-4 normal; 5-9 mild; 10-14 moderate; 15-21 severe): 0 Source: Developed by Drs. Eleuterio Spivey, Marsha Darling, Antonio Goodman and colleagues, with an educational bebeto from [employer]. BIGG-7 Assessment Billing BIGG-7 Assessment Tool: BIGG-7 Assessment 18567 Review of Systems Const Denies fatigue, Denies fever(s), Denies headache(s), Denies lethargy, Denies stops breathing during sleep and Denies weakness Eyes Details: Sees Dr. Alexa Botello ENT Details: gets dental cleaning every 3 months Denies vertigo, Denies dizziness, Denies headache(s), Denies nasal congestion, Denies nasal obstruction, Denies post nasal drip and Denies sore throat Card Reports no additional complaints Resp Reports no additional complaints GI Denies abdominal pain, Denies bloating, Denies change in bowel habits, Denies dyspepsia and Denies heartburn Reports no additional complaints Musc Reports no additional complaints Skin/Breast Denies breast pain and Denies breast mass Neuro Denies vertigo, Denies dizziness, Denies headache(s) and Denies weakness Psych Reports no additional complaints Endo Denies fatigue Lazarus/Lymph Reports no additional complaints Aller/Immun Reports no additional complaints Physical exam (Primary Care) Vital Signs: Last Vital Signs Pulse 67 04/04/24 09:02 BP 134/76 04/04/24 09:02 Pulse Ox 97 04/04/24 09:02 Oxygen Delivery Method Room Air 04/04/24 09:02 BMI result Body Mass Index 23.1 Tobacco/Smoking Status: Tobacco use Status Tobacco use date assessed 04/04/24 04/04/24 09:11 Patient Tobacco Use Status Never used Tobacco 04/04/24 09:03 e-Cigarette/Vaping Use Never Used 04/04/24 09:03 PHQ-9: PHQ-9 Score PHQ-9: Total score 1 04/04/24 10:09 Depression Screening Interpretation: Negative Thrive Assessment: Date of Thrive Assessment Date Thrive assessed 04/04/24 04/04/24 09:11 Const General: cooperative, comfortable and no acute distress Orientation/consciousness: patient oriented x3 HENMT Other: Some dry wax noted in right ear canal, clear in left Ears: hearing grossly normal bilaterally, external ears normal and TM's normal bilaterally General nose exam: Normal external nose present, Normal nasal mucous membranes and turbinates present and No nasal discharge present Mouth: Normal oral and palatal mucosa present, oropharynx normal and moist mucous membranes Throat: Yes posterior oropharynx normal Eyes General: appearance normal, both eyes and all related structures Conjunctivae: conjunctivae normal Pupils: Equal, round and reactive pupils present EOM: EOMs intact bilaterally Neck Neck: Yes full ROM, Yes no lymphadenopathy and Yes supple Chest Chest palpation & inspection: normal inspection of the chest Breast/axilla palpation: normal palpation of the breasts Resp Effort & Inspection: normal respiratory effort and able to speak in complete sentences Auscultation: clear to auscultation bilaterally Cardio Rate: regular rate Rhythm: regular rhythm Heart sounds: S1 normal heart sound present and S2 normal heart sound present GI Inspection: Yes normal to inspection Palpation (GI): Soft to palpation, nontender and no masses Auscultation: normal bowel sounds Back/Spine/Pelvis Cervical Spine: cervical ROM normal Thoracic/Lumbar Spine: thoracic and lumbar spine normal to inspection Skin General skin exam: no rashes or lesions noted Neuro General: patient oriented x3, gait normal, tone normal, moves all extremities, Normal light touch and pain sensation and no focal motor deficits Cranial nerves: Yes Equal, round and reactive pupils present Cognition (Neuro): normal cognition Gait exam (Neuro): Normal gait present Motor exam (neuro): 5/5 motor strength present throughout Extrem General: Yes full ROM, Yes no joint enlargement, Yes no pedal edema, Yes no calf tenderness and Yes normal gait Psych Appearance: grossly normal Mental Status: mental status grossly normal Speech and movement: Normal speech and movement present Affect: normal affect Results Reviewed Results Reviewed: Name: Rico Whatley Age/Sex: 78/F : 1945 Unit#: [id number] Attend Dr: Tiny Potter MD Re03/07/24 Status: DEP REF Location: [facility] Disch: SPEC : [id number] LOYD: 03/07/24 STATUS: COMP REQ : [id number] RECD: 03/07/24-[address]: Tiny Potter MD COMP: 03/07/24 ENTERED: 03/07/24-[address]: ORDERED: Met Prof Fast, AST, ALT, Lipid Panel, Vitamin D 25-OH Test Result Flag Reference Sodium 141 135-145 mmol/L Potassium 4.2 3.3-5.1 mmol/L CL 104 96-108 mmol/L CO2 29 22-29 mmol/L Gap 12 12-20 BUN 14 9-16 mg/dL Creat 0.73 0.5-1.4 mg/dL EGFR > 60 NOTE: For -Citizen Of [place] individuals, multiply the result by 1.210. Chronic Kidney Disease: Estimated GFR < 60 mL/min/1.73m2 Severe Kidney Disease: Estimated GFR < 15 mL/min/1.73m2 FBS 95 60-99 mg/dL CA 9.6 8.4-10.2 mg/dL AST (GOT) 23 5-31 U/L ALT (GPT) 14 0-31 U/L Triglyceride 64 <150 mg/dL Desirable Triglyceride: less than 150 mg/dL Borderline High Triglyceride 150-199 mg/dL High Triglyceride: 200-499 mg/dL Very High Triglyceride: greater than or equal to 5OO mg/dL Cholesterol 200 H <200 mg/dL Desirable Cholesterol: less than 200 mg/dL Borderline High Cholesterol: 200-239 mg/dL High Cholesterol: greater than 239 mg/dL LDL Calculated 111 H <100 mg/dL Desirable LDL: less than 100 mg/dL Near Optimal/Above Optimal LDL: 110-129 mg/dL Borderline High LDL: 130-159 mg/dL High LDL: 160-189 mg/dL Very High LDL: greater than or equal to 190 mg/dL HDL 77 >40 mg/dL Desirable HDL: greater than 40 mg/dL Note: This HDL assay may give artificially low results in patients with liver disease. Vit D 25-OH Tot 62.5 >30 ng/mL Health Based Reference Values* < 20 ng/mL Deficient 20-30 ng/mL Insufficient > 30 ng/mL Sufficient Coding Level of Care Code Est Pt Prev Care >65y(63042) Diagnoses Osteopenia after menopause M85.80; Z78.0 Dyslipidemia E78.5 Essential hypertension I10 Annual visit for general adult medical examination with abnormal findings Z00.01 Additional Codes BIGG-7 Assessment Billing - BIGG-7 Assessment Tool: BIGG-7 Assessment 44491 ([id number])
== END 2024-04-04 10:08 | disposition home or self-care (01) ==
PROVIDERS: PCP Internal Medicine; Visit Provider Internal Medicine
DX: Z00.00 Encounter for general adult medical examination without abnormal findings (principal); M85.80 Other specified disorders of bone density and structure, unspecified site; Z78.0 Asymptomatic menopausal state; E78.5 Hyperlipidemia, unspecified; I10 Essential (primary) hypertension
CPT/HCPCS: 99397

== ENCOUNTER 2025-01-26 07:57 | Outpatient (REF) | payer MEDICARE, OTHER, SELFPAY ==
--- NOTE | ~2025-01-26 | MM_ITS ---
EXAMINATION: MM SCREENING DIGITAL BREAST TOMOSYNTHESIS, BILATERAL CLINICAL INFORMATION: Screening. Asymptomatic. COMPARISON: Mammography: Comparison is made with available priors TECHNIQUE: Digital breast mammography with tomosynthesis is performed in both the craniocaudal and mediolateral oblique views along with computer-aided detection (CAD). FINDINGS: There are scattered areas of fibroglandular density (ACR BI-RADS breast composition Category b). There are no significant masses, abnormal calcifications, or other abnormalities. MM/MM tomosynthesis screening BI IMPRESSION: No mammographic evidence of malignancy. ASSESSMENT: BI-RADS BI-RADS 1 - Negative RECOMMENDATION: Routine annual mammography screening. 1 year F/U This examination should not preclude the clinical evaluation of a suspicious palpable abnormality. This patient's information was entered into a reminder system with a target due date for their next mammogram. Electronically signed by: Linette Sawyer DO 01/30/2025 05:10 PM EDT
--- NOTE | ~2025-01-26 | MM_ITS ---
EXAMINATION: DXA BONE DENSITY AXIAL HISTORY: Estrogen deficiency TECHNIQUE: Ichiba Dual energy absorptiometry (DEXA) of the lumbar spine, total left hip, and femoral neck was performed. COMPARISON: Comparison is made with the prior examination dated 01/15/2022. FINDINGS: The bone mineral density of the lumbar spine is 0.953 with a T-score of -1.9, and a Z-score of 0.0. This is indicative of osteopenia. This represents a BMD change of 0.2% compared to the prior exam. This is not statistically significant. The bone mineral density of the left total hip is 0.843 with a T-score of -1.3, and a Z-score of 0.8. This is indicative of osteopenia. This represents a BMD change of 1.8% compared to the prior exam. This is not statistically significant. The bone mineral density of the left femoral neck is 0.811 with a T-score of -1.6, and a Z-score of 0.6. This is indicative of osteopenia. This represents a BMD change of 9.7% compared to the prior exam. FRACTURE RISK: The FRAX index suggests a ten year probability of major osteoporotic fracture of 36.1%, and of hip fracture 24.1%. MM/XR DEXA axial skeleton IMPRESSION: Based on bone mineral density, and according to World Health Organization (WHO) criteria, the diagnosis is consistent with osteopenia. All bone density values are in grams per centimeter squared (g/cm2). Statistically, 68% of repeat scans fall within 1 SD (+/- 0.010 g/cm2 for AP spine L1-L4) and 1 SD (+/- 0.012 g/cm2 for femur total) FRAX is a trademark of the [employer] Metabolic Bone Disease, a World Health Organization (WHO) Collaborating Center. Electronically signed by: Eleuterio Mejia MD 01/26/2025 09:36 AM EDT
== END 2025-01-26 07:58 | disposition home or self-care (01) ==
LOC: HO.MAMMO 07:57
PROVIDERS: PCP Internal Medicine; Visit Provider Internal Medicine
DX: Z12.31 Encounter for screening mammogram for malignant neoplasm of breast (principal); Z13.820 Encounter for screening for osteoporosis; Z78.0 Asymptomatic menopausal state; M85.80 Other specified disorders of bone density and structure, unspecified site
CPT/HCPCS: 77063; 77067; 77080

== ENCOUNTER → 2025-01-26 08:15 | Outpatient (BNV) | payer MEDICARE, OTHER, SELFPAY | PROVIDERS: PCP Internal Medicine; Visit Provider Radiology Diagnostic Radiology | DX: E28.39 Other primary ovarian failure (principal) | CPT/HCPCS: 77080 ==

== ENCOUNTER 2025-04-25 07:08 | Outpatient (REF) | payer MEDICARE, OTHER, SELFPAY ==
--- OUTSIDE RECORDS SUMMARY | 2025-04-25 07:11 | XMS_ITS | Patient Health Record ---
Author Organization [facility] Address [address] [place] [address] Care Team Providers Care Correctional Maintenance Technician Name Role Phone Abbey CORTES, Tiny Primary Care Provider Eleuterio Henning [phone] Allergies Allergen (clinical drug ingredient) Drug/Non Drug Allergy documented on EMR Reaction Allergy Type Onset Date Status Sulfa Unknown Drug Allergy Active Reason For Referral No Information Medications Medication SIG (Take, Route, Frequency, Duration) Notes Start Date End Date Status Glucosamine Active Suprep Bowel Prep 1 kit as directed Oral ly as directed for 1 dose 06/19/2015 Active Black Cohosh Active Vitamin D3 2000 UNIT Orally Active Ocuvite Active Simvastatin 20 MG 1 tablet in the even ing Orally Once a day Active hydroCHLOROthiazide 12.5 MG 1 capsule Or ally Once a day Active Problems Problem Type SNOMED Code ICD Code Onset Dates Problem Status W/U Status Risk Notes Problem Colon cancer screening (134762059) Colon cancer screening (V76.51) Active confirmed Problem Long-term current use of drug therapy (987877140) Encounter for long-term (current) use of medications (V58.69) Active confirmed Plan Of Treatment Future Test Test Name Order Date COLONOSCOPY 06/18/2015 Insurance Providers Payer Name Payer Address Payer Phone Subscriber Number Group Number Insured Name Patient Relationship to Insured Coverage Start Date Coverage End Date [employer] [address] [place] [address] [id number] BUSHRA PERAZA Self - patient is the insured Medicare of [place] [employer] [address] [place] [address] [id number] BUSHRA PERAZA Self - patient is the insured Medical (General) History Medical History History ICD Code Colonoscopy 01-07-2004--neg e xcept for diverticulosis and internal hemorrhoids Denies [place],DM,CVA,Lung disease,renal dise ase HTN Hyperlipidemia
[2025-04-25 10:29] LABS: Alanine Aminotransferase 15 U/L (0-31); Anion Gap 10 (12-20); Aspartate Amino Transferase 26 U/L (5-31); Blood Urea Nitrogen 18 mg/dL (9-16); Calcium 8.9 mg/dL (8.4-10.2); Carbon Dioxide 30 mmol/L (22-29); Chloride 103 mmol/L (96-108); Cholesterol 206 mg/dL (<200); Estimated Glomerular Filt Rate > 60; HDL Cholesterol 73 mg/dL (>40); Potassium 3.4 mmol/L (3.3-5.1); Sodium 140 mmol/L (135-145); Triglycerides 77 mg/dL (<150)
== END 2025-04-25 07:09 | disposition home or self-care (01) ==
LOC: HO.HMGCLDS 07:08
PROVIDERS: PCP Internal Medicine; Visit Provider Internal Medicine
DX: E78.5 Hyperlipidemia, unspecified (principal); I10 Essential (primary) hypertension; M85.80 Other specified disorders of bone density and structure, unspecified site; Z78.0 Asymptomatic menopausal state
CPT/HCPCS: 36415; 80048; 80061; 82306; 84450; 84460

== ENCOUNTER 2025-04-30 08:43 | Outpatient (AMB) | payer MEDICARE, OTHER, SELFPAY ==
--- OUTSIDE RECORDS SUMMARY | 2025-04-30 08:56 | XMS_ITS | Patient Health Record ---
Author Organization [facility] Address [address] [place] [address] Care Team Providers Care Operations Research Group Manager Name Role Phone Abbey CORTES, Tiny Primary Care Provider Eleuterio Henning [phone] Allergies Allergen (clinical drug ingredient) Drug/Non Drug [...] Status Risk Notes Problem Colon cancer screening (294607111) Colon cancer screening (V76.51) Active confirmed Problem Long-term current use of drug therapy (745690662) Encounter for long-term (current) use of medications (V58.69) Active confirmed Plan Of Treatment Future Test Test Name Order Date COLONOSCOPY 06/18/2015 Insurance Providers Payer Name Payer Address Payer Phone Subscriber Number Group Number Insured Name Patient Relationship to Insured Coverage Start Date Coverage End Date [employer] [address] [place] [address] [id number] BUSHRA PERAZA Self - patient is the insured Medicare of [place] [address] [place] [address] [id number] BUSHRA PERAZA Self - patient is the insured Medical (General) History Medical History History ICD Code Colonoscopy 01-07-2004--neg e xcept for diverticulosis and internal hemorrhoids Denies [place],DM,CVA,Lung disease,renal dise ase HTN Hyperlipidemia
--- NOTE | 2025-04-30 09:13 | A.OFFPC_ITS ---
Vital Signs 04/30/25 09:20 Height 5 ft 5 in Weight 145 lb BMI 24.1 BP 142/88 H Blood Pressure Location Lt brachial Position Sitting Respiration 16 Pulse 62 Pulse Source Pulse Oximeter Temp 98.0 F Temp Source Oral Pulse Oximetry (%) 95 Oxygen Delivery Method Room Air Intake Visit Reasons: Annual PE alfredo from 03/15/24 Intake Note: Pt is here today for her PE: last bone density scan 01/26/25, mammogram 01/26/25 Allergies Sulfa (Sulfonamide Antibiotics) Allergy (Unknown, Verified 04/30/25 09:54) hives atorvastatin Adverse Reaction (Unknown, Verified 04/30/25 09:54) muscle pain rosuvastatin Adverse Reaction (Unknown, Verified 04/30/25 09:54) muscle pain Medication List - Last Reconciled 04/30/25 by Tiny Potter MD cholecalciferol (vitamin D3) 50 mcg PO DAILY hydrochlorothiazide 25 mg PO QAM lisinopril 10 mg PO DAILY gy-use-DZ-vit M-jnlxzb-qflefjl 200 mcg-15 mcg- 5 mg-1 mg (PreserVision AREDS 2 Plus Multivit) 1 cap PO BID pravastatin 20 mg PO DAILY Tobacco use date assessed: 04/30/25 Fall risk assessment: No Falls in past year Last assessed Fall Risk: 04/30/25 Dental Screening Dental Screen Date: 04/30/25 Did you have a dental visit in the last 12 months?: Yes Did you have a dental problem in the last 6 months where you did not have access to dental care?: No Was dental information given to patient?: Patient has dentist HPI Annual PE alfredo from 03/15/24 HPI Details 79 year-old lady with history of hyperte nsion, dyslipidemia , osteopenia, here today for physical exam. She is up-to-date with her screening mammogram, done 01/26/25 , done together with a Bone density scan , which showed osteopenia multiple sites, unchanged from previous exam. No history of fractures. She had a screening colonoscopy 08/2015 , no need to repeat by Dr. Bejarano. Systolic blood pressure elevated, patient however denies any chest pain no headache no lightheadedness. Currently taking lisinopril 10 mg daily and HCTZ 25 mg once a day [facility] Medical History (Updated 04/04/24 @ 10:06 by Tiny Potter MD) History of COVID-19 Sleeping difficulty Lumbago with sciatica, left side Dyslipidemia Essential hypertension Osteopenia after menopause Surgical History No pertinent past surgical history Social History Housing: House Alcohol intake: never Patient Tobacco Use Status: Never used Tobacco e-Cigarette/Vaping Use: Never Used service: No Current occupational status: retired Cognitive needs: No Hearing needs: No Vision needs: Yes Questionnaire PHQ-9 Over the last 2 weeks, how often have you been bothered by any of the following problems? 1. Little interest or pleasure in doing things: not at all 2. Feeling down, depressed, or hopeless: not at all 3. Trouble falling or staying asleep, or sleeping too much: not at all 4. Feeling tired or having little energy: not at all 5. Poor appetite or overeating: not at all 6. Feeling bad about yourself - or that you are a failure or have let yourself or your family down: not at all 7. Trouble concentrating on things, such as reading the newspaper or watching television: not at all 8. Moving or speaking so slowly that other people could have noticed. Or the opposite - being so fidgety or restless that you have been moving around a lot more than usual: not at all 9. Thoughts that you would be better off or of hurting yourself in some way: not at all Total score: 0 Depression Screening Interpretation: Negative Depression Screening Done: Yes 15467 - PHQ-9 Billing: Yes Source: Developed by Drs. Eleuterio Spivey, Marsha Darling, Antonio Goodman and colleagues, with an educational bebeto from [employer]. Thrive Questionnaire Date Thrive assessed: 04/23/25 I am a: Patient What is your living situation today?: I have a steady place to live Within the past 12 months, did the food you bought not last and you didn't have the money to get more?: Never true Within the past 12 months, did you worry whether your food would run out before you got money to buy more?: Never true Do you have trouble paying for medicines?: No Do you have trouble getting transportation to medical appointments?: No Do you have trouble paying your heating and electricity bill?: No Do you have trouble taking care of your child, family member or friend?: No Do you have trouble with day-to-day activities such as bathing, preparing meals, shopping, managing finances, etc.?: No Are you currently unemployed and looking for a job?: No Are you interested in more education?: No Please select the resources that you would like help with: None Currently or been in a relationship where the following occur: No concerns reported THRIVE Score: 0 AUDIT C Alcohol Use Questionnaire (AUDIT-C) 1. How often do you have a drink containing alcohol?: Monthly or less 2. How many drinks containing alcohol do you have on a typical day when you are drinking?: 1 or 2 3. How often do you have six or more drinks on one occasion?: Never Total Score: 1 BIGG-7 AMB Questionnaire BIGG-7 Date BIGG - 7 assessed: 04/30/25 Feeling nervous, anxious, or on edge: 0 = Not at all Not being able to stop or control worryin = Not at all Worrying too much about different things: 0 = Not at all Trouble relaxin = Not at all Being so restless that it is hard to sit still: 0 = Not at all Becoming easily annoyed or irritable: 0 = Not at all Feeling afraid as if something awful might happen: 0 = Not at all Total BIGG-7 score (0-4 normal; 5-9 mild; 10-14 moderate; 15-21 severe): 0 Source: Developed by Drs. Eleuterio Spivey, Marsha Darling, Antonio Goodman and colleagues, with an educational bebeto from [employer]. Review of Systems Const Denies fatigue, Denies fever(s), Denies headache(s), Denies lethargy, Denies stops breathing during sleep and Denies weakness Eyes Details: Sees Dr. Alexa Botello ENT Details: gets dental cleaning every 3 months Denies vertigo, Denies dizziness, Denies headache(s), Denies nasal congestion, Denies nasal obstruction, Denies post nasal drip and Denies sore throat Card Reports no additional complaints Resp Reports no additional complaints GI Denies abdominal pain, Denies bloating, Denies change in bowel habits, Denies dyspepsia and Denies heartburn Reports no additional complaints Musc Reports no additional complaints Skin/Breast Denies breast pain and Denies breast mass Neuro Denies vertigo, Denies dizziness, Denies headache(s) and Denies weakness Psych Reports no additional complaints Endo Denies fatigue Lazarus/Lymph Reports no additional complaints Aller/Immun Reports no additional complaints Physical exam (Primary Care) Vital Signs: Last Vital Signs Temp 98.0 F 04/30/25 09:20 Pulse 62 04/30/25 09:20 Resp 16 04/30/25 09:20 BP 142/88 H 04/30/25 09:20 Pulse Ox 95 04/30/25 09:20 Oxygen Delivery Method Room Air 04/30/25 09:20 BMI result Body Mass Index 24.1 Tobacco/Smoking Status: Tobacco use Status Tobacco use date assessed 04/30/25 04/30/25 09:14 Patient Tobacco Use Status Never used Tobacco 04/30/25 09:14 e-Cigarette/Vaping Use Never Used 04/30/25 09:14 PHQ-9: PHQ-9 Score PHQ-9: Total score 0 04/30/25 09:55 Depression Screening Interpretation: Negative Thrive Assessment: Date of Thrive Assessment Date Thrive assessed 04/23/25 04/30/25 09:14 Currently or been in a relationship where the following occur: No concerns reported Advance Care Planning discussion: Completed/Scanned Date of discussion: 04/30/25 Who was present: patient Forms completed: MOLST Time spent: 16-45 minutes Actual minutes spent: 2 Const General: cooperative, comfortable and no acute distress Orientation/consciousness: patient oriented x3 HENMT Ears: hearing grossly normal bilaterally, external ears normal and TM's normal bilaterally General nose exam: Normal external nose present Mouth: Normal oral and palatal mucosa present, oropharynx normal and moist mucous membranes Eyes General: appearance normal, both eyes and all related structures Conjunctivae: conjunctivae normal Pupils: Equal, round and reactive pupils present EOM: EOMs intact bilaterally Neck Neck: Yes full ROM, Yes no lymphadenopathy and Yes supple Chest Chest palpation & inspection: normal inspection of the chest Breast/axilla palpation: normal palpation of the breasts Resp Effort & Inspection: normal respiratory effort and able to speak in complete sentences Auscultation: clear to auscultation bilaterally Cardio Rate: regular rate Rhythm: regular rhythm Heart sounds: S1 normal heart sound present and S2 normal heart sound present GI Inspection: Yes normal to inspection Palpation (GI): Soft to palpation, nontender and no masses Auscultation: normal bowel sounds Back/Spine/Pelvis Cervical Spine: cervical ROM normal Thoracic/Lumbar Spine: thoracic and lumbar spine normal to inspection Skin General skin exam: no rashes or lesions noted Neuro General: patient oriented x3, gait normal, tone normal, moves all extremities, Normal light touch and pain sensation and no focal motor deficits Cranial nerves: Yes Equal, round and reactive pupils present Cognition (Neuro): normal cognition Gait exam (Neuro): Normal gait present Motor exam (neuro): 5/5 motor strength present throughout Extrem General: Yes full ROM, Yes no joint enlargement, Yes no pedal edema, Yes no calf tenderness and Yes normal gait Psych Appearance: grossly normal Mental Status: mental status grossly normal Speech and movement: Normal speech and movement present Affect: normal affect Results Reviewed Results Reviewed: Name: Rico Whatley Age/Sex: 79/F : 1945 Unit#: [id number] Attend Dr: Tiny Potter MD Re04/25/25 Status: DEP REF Location: [facility] Disch: SPEC : [id number] LOYD: 04/25/25 STATUS: COMP REQ : [id number] RECD: 04/25/[address]: Tiny Potetr MD COMP: 04/25/25 ENTERED: 04/25/[address]: ORDERED: Met Prof Fast, AST, ALT, Lipid Panel, Vitamin D 25-OH Test Result Flag Reference Sodium 140 135-145 mmol/L Potassium 3.4 3.3-5.1 mmol/L CL 103 96-108 mmol/L CO2 30 H 22-29 mmol/L Gap 10 L 12-20 BUN 18 H 9-16 mg/dL Creat 0.77 0.5-1.4 mg/dL eGFR > 60 Chronic Kidney Disease: Estimated GFR < 60 mL/min/1.73m2 Severe Kidney Disease: Estimated GFR < 15 mL/min/1.73m2 FBS 96 60-99 mg/dL CA 8.9 # 8.4-10.2 mg/dL AST (GOT) 26 5-31 U/L ALT (GPT) 15 0-31 U/L Triglyceride 77 <150 mg/dL Desirable Triglyceride: less than 150 mg/dL Borderline High Triglyceride 150-199 mg/dL High Triglyceride: 200-499 mg/dL Very High Triglyceride: greater than or equal to 5OO mg/dL Cholesterol 206 H <200 mg/dL Desirable Cholesterol: less than 200 mg/dL Borderline High Cholesterol: 200-239 mg/dL High Cholesterol: greater than 239 mg/dL LDL Calculated 118 H <100 mg/dL Desirable LDL: less than 100 mg/dL Near Optimal/Above Optimal LDL: 110-129 mg/dL Borderline High LDL: 130-159 mg/dL High LDL: 160-189 mg/dL Very High LDL: greater than or equal to 190 mg/dL HDL 73 >40 mg/dL Desirable HDL: greater than 40 mg/dL Note: This HDL assay may give artificially low results in patients with liver disease. Vitamin D 25-OH 69.0 >30 ng/mL Health Based Reference Values* < 20 ng/mL Deficient 20-30 ng/mL Insufficient > 30 ng/mL Sufficient Coding Level of Care Code Est Pt Prev Care >65y(75271) Diagnoses Annual visit for general adult medical examination with abnormal findings Z00. Osteopenia after menopause M85.80; Z78.0 Essential hypertension I10 Dyslipidemia E78.5 Encounter for counseling regarding advance directives Z71.89 Additional Codes PHQ-9 - 68165 - PHQ-9 Billing: Yes ([id number]) Vital Signs *Quality* - Advance Care Planning discussion: Completed/Scanned ([id number]) Vital Signs *Quality* - Time spent: 16-45 minutes ([id number]) Assessment & Plan Assessment & Plan (1) Annual visit for general adult medical examination with abnormal findings: Code(s): Z00.01 - Encounter for general adult medical examination with abnormal findings Plan: Reviewed recent fasting lab results with patient. Continue with regular dental visit every 6 months and regular eye exams, at least every 2 years. Take adequate calcium in diet and vitamin-D 3 at 2000 IU per cap once a day, in addition to weight-bearing exercises to help maintain good muscle tone and weight control. Instructed to do self-breast exam, and is up-to-date with yearly mammogram, and bone density scan, latter showing unchanged osteopenia in multiple sites, no history of fractures. No longer gets colon cancer screenings, up-to-date with all her vaccines (2) Osteopenia after menopause: Code(s): M85.80 - Other specified disorders of bone density and structure, unspecified site; Z78.0 - Asymptomatic menopausal state Category: Medical Plan: Reviewed latest bone density scan results which showed presence of osteopenia unchanged from previous exam, no history of fracture, continue taking vitamin-D 3 supplements at least 2000 units daily, and take adequate calcium from dietary sources, reinforced importance of doing regular weight-bearing exercise (3) Essential hypertension: Code(s): I10 - Essential (primary) hypertension Category: Medical Plan: Increase lisinopril dose to 20 mg daily continued on hydrochlorothiazide 25 mg daily. Goal blood pressure less than 130/80 reinforced importance of adherence to healthy eating habits, cutting back on salt intake and getting regular exercise. See nurse navigator in 2-3 weeks to get blood pressure checked them see her back for follow-up in September 2025 after fasting labs done (4) Dyslipidemia: Code(s): E78.5 - Hyperlipidemia, unspecified Category: Medical Plan: Reviewed recent fasting lipid profile with patient with levels within normal limits . Continue pravastatin 20 mg at bedtime , in addition to adherence to low-cholesterol diet and regular exercise, at least 30 minutes 3 to 4 times a week. Advised patient to make healthy food choices, eat more fruits, vegetables, whole grains, wild caught fish and low-fat dairy. Limit amount of meat and fried or fatty food products, as well as processed foods and fast foods. Follow-up scheduled with repeat fasting lipid panel in August 2025 (5) Encounter for counseling regarding advance directives: Code(s): Z71.89 - Other specified counseling Plan: Initiated the conversation about Advanced Directives. Advanced Directives help patients prepare for current and future decisions about their medical treatment and place of care. Discussed with patient that it is a process where a patients current condition and prognosis are reviewed, their wishes for information regarding their illness are elicited, and likely medical dilemmas are presented and options discussed. Healthcare proxy form already done, MOLST form completed today. These forms can be amended as needed, reviewed yearly and make changes as needed Orders: Orders Aspartate Amino Transferase 09/15/25 E78.5 - Hyperlipidemia, unspecified, I10 - Essential (primary) hypertension, M85.80 - Other specified disorders of bone density and structure, unspecified site, Z00.01 - Encounter for general adult medical examination with abnormal findings, Z71.89 - Other specified counseling, Z78.0 - Asymptomatic menopausal state Basic Metabolic Panel Fasting 09/15/25 E78.5 - Hyperlipidemia, unspecified, I10 - Essential (primary) hypertension, M85.80 - Other specified disorders of bone density and structure, unspecified site, Z00.01 - Encounter for general adult medical examination with abnormal findings, Z71.89 - Other specified counseling, Z78.0 - Asymptomatic menopausal state Lipid Panel 09/15/25 E78.5 - Hyperlipidemia, unspecified, I10 - Essential (primary) hypertension, M85.80 - Other specified disorders of bone density and structure, unspecified site, Z00.01 - Encounter for general adult medical examination with abnormal findings, Z71.89 - Other specified counseling, Z78.0 - Asymptomatic menopausal state Alanine Aminotransferase 09/15/25 E78.5 - Hyperlipidemia, unspecified, I10 - Essential (primary) hypertension, M85.80 - Other specified disorders of bone density and structure, unspecified site, Z00.01 - Encounter for general adult medical examination with abnormal findings, Z71.89 - Other specified counseling, Z78.0 - Asymptomatic menopausal state Medications: Changed From lisinopril 10 mg PO DAILY 90 tabs 1RF To lisinopril 20 mg PO DAILY 90 tabs 4RF Refilled hydrochlorothiazide 25 mg PO QAM 90 tabs 4RF pravastatin 20 mg PO DAILY 90 tabs 4RF
[2025-04-30 09:20] VITALS: BP 142/88; PULSE 62; RESP 16; TEMP 36.7; O2SAT 95; BMI 24.1
== END 2025-04-30 10:21 | disposition home or self-care (01) ==
LOC: HO.HMCC 08:44
PROVIDERS: PCP Internal Medicine; Visit Provider Internal Medicine
DX: Z00.01 Encounter for general adult medical examination with abnormal findings (principal); M85.80 Other specified disorders of bone density and structure, unspecified site; Z78.0 Asymptomatic menopausal state; I10 Essential (primary) hypertension; E78.5 Hyperlipidemia, unspecified; Z71.89 Other specified counseling

== ENCOUNTER → 2025-04-30 08:43 | Outpatient (BNVA) | payer MEDICARE, OTHER, SELFPAY | PROVIDERS: PCP Internal Medicine; Visit Provider Internal Medicine | DX: Z00.01 Encounter for general adult medical examination with abnormal findings (principal); M85.80 Other specified disorders of bone density and structure, unspecified site; Z78.0 Asymptomatic menopausal state; I10 Essential (primary) hypertension; E78.5 Hyperlipidemia, unspecified; Z71.89 Other specified counseling | CPT/HCPCS: 96127; 99397 ==

== ENCOUNTER 2025-10-02 08:40 | Outpatient (REF) | payer MEDICARE, OTHER, SELFPAY ==
[2025-10-02 11:28] LABS: Alanine Aminotransferase 17 U/L (0-31); Anion Gap 7 (12-20); Aspartate Amino Transferase 28 U/L (5-31); Blood Urea Nitrogen 16 mg/dL (9-16); Calcium 9.6 mg/dL (8.4-10.2); Carbon Dioxide 34 mmol/L (22-29); Chloride 104 mmol/L (96-108); Cholesterol 225 mg/dL (<200); Estimated Glomerular Filt Rate > 60; HDL Cholesterol 83 mg/dL (>40); Potassium 4.0 mmol/L (3.3-5.1); Sodium 141 mmol/L (135-145); Triglycerides 83 mg/dL (<150)
== END 2025-10-02 08:41 | disposition home or self-care (01) ==
LOC: HO.HMGCLDS 08:40
PROVIDERS: PCP Internal Medicine; Visit Provider Internal Medicine
DX: Z00.00 Encounter for general adult medical examination without abnormal findings (principal); I10 Essential (primary) hypertension; E78.5 Hyperlipidemia, unspecified; M85.80 Other specified disorders of bone density and structure, unspecified site; Z78.0 Asymptomatic menopausal state; Z71.89 Other specified counseling
CPT/HCPCS: 36415; 80048; 80061; 84450; 84460

== ENCOUNTER 2025-10-08 09:03 | Outpatient (AMB) | payer MEDICARE, OTHER, SELFPAY ==
--- NOTE | 2025-10-08 09:21 | A.OFFPC_ITS ---
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 Allergies Sulfa (Sulfonamide Antibiotics) Allergy (Unknown, Verified 10/08/25 09:31) hives atorvastatin Adverse Reaction (Unknown, Verified 10/08/25 09:31) muscle pain rosuvastatin Adverse Reaction (Unknown, Verified 10/08/25 09:31) muscle pain Medication List - Last Reconciled 10/08/25 by Tiny Potter MD cholecalciferol (vitamin D3) 50 mcg PO DAILY hydrochlorothiazide 25 mg PO QAM lisinopril 20 mg PO DAILY aq-cfa-YP-vit L-hhtvel-ceauxtj 200 mcg-15 mcg- 5 mg-1 mg (PreserVision AREDS 2 Plus Multivit) 1 cap PO BID pravastatin 20 mg PO DAILY Tobacco use date assessed: 10/08/25 Fall risk assessment: No Falls in past year Last assessed Fall Risk: 10/08/25 Dental Screening Dental Screen Date: 10/08/25 Did you have a dental visit in the last 12 months?: Yes Did you have a dental problem in the last 6 months where you did not have access to dental care?: No Was dental information given to patient?: Patient has dentist [facility] Medical History History of COVID-19 Sleeping difficulty Lumbago with sciatica, left side Dyslipidemia Essential hypertension Osteopenia after menopause Surgical History No pertinent past surgical history Social History Housing: House Alcohol intake: never Patient Tobacco Use Status: Never used Tobacco e-Cigarette/Vaping Use: Never Used service: No Current occupational status: retired Cognitive needs: No Hearing needs: No Vision needs: Yes Questionnaire Thrive Questionnaire Date Thrive assessed: 04/23/25 I am a: Patient What is your living situation today?: I have a steady place to live Within the past 12 months, did the food you bought not last and you didn't have the money to get more?: Never true Within the past 12 months, did you worry whether your food would run out before you got money to buy more?: Never true Do you have trouble paying for medicines?: No Do you have trouble getting transportation to medical appointments?: No Do you have trouble paying your heating and electricity bill?: No Do you have trouble taking care of your child, family member or friend?: No Do you have trouble with day-to-day activities such as bathing, preparing meals, shopping, managing finances, etc.?: No Are you currently unemployed and looking for a job?: No Are you interested in more education?: No Please select the resources that you would like help with: None Currently or been in a relationship where the following occur: No concerns reported THRIVE Score: 0 BIGG-7 AMB Questionnaire BIGG-7 Date BIGG - 7 assessed: 04/30/25 Source: Developed by Drs. Eleuterio Spivey, Marsha Darling, Antonio Goodman and colleagues, with an educational bebeto from [employer]. Review of Systems Const Denies fatigue, Denies fever(s), Denies headache(s) and Denies weakness Eyes Details: Sees Dr. Alexa Botello ENT Denies vertigo, Denies dizziness, Denies headache(s), Denies nasal congestion and Denies sore throat GI Denies abdominal pain, Denies bloating, Denies change in bowel habits, Denies dyspepsia and Denies heartburn Reports no additional complaints Neuro Denies vertigo, Denies dizziness, Denies headache(s) and Denies weakness Psych Reports no additional complaints Endo Denies fatigue Lazarus/Lymph Reports no additional complaints Aller/Immun Reports no additional complaints Physical exam (Primary Care) Vital Signs: Last Vital Signs Temp 98.2 F 10/08/25 09:23 Pulse 71 10/08/25 09:23 Resp 16 10/08/25 09:23 BP 130/78 10/08/25 09:23 Pulse Ox 98 10/08/25 09:23 Oxygen Delivery Method Room Air 10/08/25 09:23 BMI result Body Mass Index 25.0 Tobacco/Smoking Status: Tobacco use Status Tobacco use date assessed 10/08/25 10/08/25 09:26 Patient Tobacco Use Status Never used Tobacco 10/08/25 09:26 e-Cigarette/Vaping Use Never Used 10/08/25 09:26 Thrive Assessment: Date of Thrive Assessment Date Thrive assessed 04/23/25 10/08/25 09:26 Currently or been in a relationship where the following occur: No concerns reported Const General: comfortable and no acute distress Orientation/consciousness: patient oriented x3 HENMT Ears: hearing grossly normal bilaterally General nose exam: Normal external nose present Mouth: Normal oral and palatal mucosa present and moist mucous membranes Eyes General: appearance normal, both eyes and all related structures Neck Neck: Yes full ROM, Yes no lymphadenopathy and Yes supple Resp Effort & Inspection: normal respiratory effort and able to speak in complete sentences Auscultation: clear to auscultation bilaterally Cardio Rate: regular rate Rhythm: regular rhythm Heart sounds: S1 normal heart sound present and S2 normal heart sound present Neuro General: patient oriented x3, gait normal, moves all extremities and no focal motor deficits Cognition (Neuro): normal cognition Gait exam (Neuro): Normal gait present Extrem General: Yes full ROM, Yes no joint enlargement, Yes no pedal edema, Yes no calf tenderness and Yes normal gait Psych Appearance: grossly normal Mental Status: mental status grossly normal Speech and movement: Normal speech and movement present Affect: normal affect Immunizations pneumoc 20-leonora conj-dip cr(PF) 0.5 mL IM syringe Performing Provider: Tiny Potter MD Performing Location[place] [facility] Administered by: Keena Goodman CMA on 10/08/25 09:54 Dose Route Admin Location Dispensed Lot Number Expiration Date [facility] [employer] 0.5 mL IM Left Deltoid 0.5 mL [id number] 07/24/26 7385-6297-38 [employer] /[employer] Total Dispensed Waste 0.5 mL 0 % VIS Given Date VIS Provided VIS Publication Date 10/08/25 Single Vaccine 25 Eligibility Eligibility Date Funding Source Not [facility] Eligible 10/08/25 Private Coding Diagnoses Osteopenia after menopause M85.80; Z78.0 Essential hypertension I10 Dyslipidemia E78.5 Assessment & Plan Assessment & Plan (1) Osteopenia after menopause: Code(s): M85.80 - Other specified disorders of bone density and structure, unspecified site; Z78.0 - Asymptomatic menopausal state Category: Medical (2) Essential hypertension: Code(s): I10 - Essential (primary) hypertension Category: Medical (3) Dyslipidemia: Code(s): E78.5 - Hyperlipidemia, unspecified Category: Medical Orders: Orders Pneumococcal 20 Immunization Today Z23 - Encounter for immunization Alanine Aminotransferase 6 Months E78.5 - Hyperlipidemia, unspecified, I10 - Essential (primary) hypertension, M85.80 - Other specified disorders of bone density and structure, unspecified site, Z78.0 - Asymptomatic menopausal state Basic Metabolic Panel Fasting 6 Months E78.5 - Hyperlipidemia, unspecified, I10 - Essential (primary) hypertension, M85.80 - Other specified disorders of bone density and structure, unspecified site, Z78.0 - Asymptomatic menopausal state Lipid Panel 6 Months E78.5 - Hyperlipidemia, unspecified, I10 - Essential (primary) hypertension, M85.80 - Other specified disorders of bone density and structure, unspecified site, Z78.0 - Asymptomatic menopausal state Aspartate Amino Transferase 6 Months E78.5 - Hyperlipidemia, unspecified, I10 - Essential (primary) hypertension, M85.80 - Other specified disorders of bone density and structure, unspecified site, Z78.0 - Asymptomatic menopausal state Vitamin D 25-OH Total 6 Months E78.5 - Hyperlipidemia, unspecified, I10 - Essential (primary) hypertension, M85.80 - Other specified disorders of bone density and structure, unspecified site, Z78.0 - Asymptomatic menopausal state
[2025-10-08 09:23] VITALS: BP 130/78; PULSE 71; RESP 16; TEMP 36.8; O2SAT 98; BMI 25.0
== END 2025-10-08 11:38 | disposition home or self-care (01) ==
LOC: HO.HMCC 09:04
PROVIDERS: PCP Internal Medicine; Visit Provider Internal Medicine
DX: Z23 Encounter for immunization (principal)

== ENCOUNTER → 2025-10-08 09:03 | Outpatient (BNVA) | payer MEDICARE, OTHER, SELFPAY | PROVIDERS: PCP Internal Medicine; Visit Provider Internal Medicine | DX: I10 Essential (primary) hypertension (principal); Z23 Encounter for immunization; E78.5 Hyperlipidemia, unspecified; M85.80 Other specified disorders of bone density and structure, unspecified site; Z78.0 Asymptomatic menopausal state; Z79.899 Other long term (current) drug therapy | CPT/HCPCS: 90471; 90677; 99212 ==